=== PATIENT | female | born 1965 | race Two or more races ===

== ENCOUNTER 2018-10-24 16:32 | Emergency (ER) | payer OTHER ==
[~2018-10-24] VITALS: Ht 157.5 cm; Wt 75.3 kg
[2018-10-24 16:40] VITALS: BP 121/66
[2018-10-24] MEDS ORDERED: HYDROcodone/APAP 5/325MG 1 TAB TABLET PO ONE (17:00)
--- NOTE | 2018-10-24 17:30 | PHYS DOC ---
Past Medical History Past Medical History: CHF, GERD, Hypertension Past Surgical History: No Surgical History Alcohol Use: None Drug Use: None Adult General Chief Complaint Chief Complaint: ANKLE PROBLEM HPI HPI Patient is a 53 year old f who presents to the ED for evaluation. Reports mechanical fall last night resulting in rolling left ankle. Initially able to weight beasr a little on it but now with increased swelling and unable to weight bear. Pain is constant, 5-6/10, sharp, worse with movement/weight baring. No head injury. no other complaints. Took Ibuprofen with some mild relief. Review of Systems Review of Systems Constitutional: Denies fever or chills [] Respiratory: Denies cough or shortness of breath [] Cardiovascular: No additional information not addressed in HPI [] GI: Denies abdominal pain, nausea, vomiting, bloody stools or diarrhea [] : Denies dysuria or hematuria [] Musculoskeletal: +joint pain Integument: No rash, Neurologic: Denies headache, focal weakness or sensory changes [] Endocrine: Denies polyuria or polydipsia [] All other systems were reviewed and found to be within normal limits, except as documented in this note. Current Medications Current Medications Current Medications Medications (Trade) Dose Ordered Sig/Estuardo Start Time Stop Time Status Last Admin Dose Admin Acetaminophen/ Hydrocodone Bitart (Lortab 5/325) 1 tab 1X ONCE 10/24/18 17:00 10/24/18 17:01 DC 10/24/18 17:14 1 TAB Allergies Allergies Allergies Coded Allergies Type Severity Reaction Last Updated Verified No Known Drug Allergies 04/05/18 No Physical Exam Physical Exam Constitutional: Well developed, well nourished, HENT: Normocephalic, atraumatic, Eyes: PERRLA, EOMI, Neck: No stridor, trachea midline Cardiovascular:Normal perfusion, Bilateral DP pulses +2/4 Lungs & Thorax: No respiratory distress Abdomen: Bowel sounds normal, soft, no tenderness, no masses, no pulsatile masses. [] Skin: Warm, dry, intact, bruising as beow Back: No tenderness, no CVA tenderness. [] Extremities: Mild to moderate swelling through left ankle/foot with some mild bruising. No lateral malleoli tenderness. Moderate tenderness at base of fifth metatarsal. Mild to moderate decreased ROM of ankle/foot 2/2 pain. Distal sensation intact. Left DP pulse +2/4 Neurologic: Alert and oriented X 3, no focal deficits noted. [] Psychologic: Affect normal, judgement normal, mood normal. [] Current Patient Data Vital Signs Vital Signs Date Time Temp Pulse Resp B/P (MAP) Pulse Ox O2 Delivery O2 Flow Rate FiO2 10/24/18 17:14 16 98 Room Air 10/24/18 16:40 97.7 62 121/66 (84) 97.7 EKG EKG [] Radiology/Procedures Radiology/Procedures Ankle XR: No acute fracture Left Foot XR proximal, nondisplaced fifth metatarsal fracture [] Course & Med Decision Making Course & Med Decision Making Pertinent Labs and Imaging studies reviewed. (See chart for details) []Likely proximal fifth metatarsal fracture. Will place in post-op shoe, weight bearing as tolerated and ortho follow up. Discussed supportive care. Prescription discussed. ER return precautions given. Patient verbalized understanding. All questions answered. Patient referred to orthopedic. Rajni Disclaimer Dragon Disclaimer This electronic medical record was generated, in whole or in part, using a voice recognition dictation system. Departure Departure Impression: Primary Impression: Fracture of fifth metatarsal bone of left foot Additional Impression: Left ankle strain Disposition: HOME, SELF-CARE Condition: IMPROVED Referrals: CESAR GRIFFITHS DO (PCP) JOS BOYCE MD Patient Instructions: Metatarsal Fracture, Undisplaced Additional Instructions: Thank you for coming to [facility]. Please read the attached handouts. Please follow-up with your primary care physician. Follow-up with Referred Ortho physician. Keep the leg elevated as much as possible for the next 48 hours. Weight-bear only as tolerated otherwise use the crutches. Please take ibuprofen 600 mg every 6 hours for pain with food. Please take the prescribed medication for uncontrolled pain. Return to the ER if your symptoms worsen or you have any other concerns. Scripts Hydrocodone/Apap 5-325 (NORCO 5-325 TABLET) 1 Each Tablet 1-2 EACH PO PRN Q6HRS PRN for PAIN, #15 as needed for pain Prov: CRISTIAN JO DO 10/24/18 Problem Qualifiers CRISTIAN JO DO Oct 24, 2018 17:30
[2018-10-24] MEDS ORDERED: HYDR-3164 PO (17:39)
--- NOTE | 2018-10-25 00:09 | RAD ---
FOOT LEFT 3V, ANKLE LEFT 3V 10/24/2018 4:56 PM INDICATION: Trauma COMPARISON: None available. TECHNIQUE: 3 views of the left foot and 3 views the left ankle are provided. FINDINGS: There is no acute fracture or dislocation. Tibial plafond and talar dome are intact. The ankle mortise is congruent. Bone mineralization is within normal limits. Joint spaces are maintained. Regional soft tissues are within normal limits. There is no soft tissue gas or osseous erosion. IMPRESSION: No acute fracture or dislocation. Electronically signed by: Nanci Sanon MD (10/25/2018 12:06 AM) [id number]
== END 2018-10-24 18:01 | disposition home or self-care (01) ==
LOC: ER 16:32
DX: S92.325A Nondisplaced fracture of second metatarsal bone, left foot, initial encounter for closed fracture (principal); S93.402A Sprain of unspecified ligament of left ankle, initial encounter; I11.0 Hypertensive heart disease with heart failure; I50.9 Heart failure, unspecified; K21.9 Gastro-esophageal reflux disease without esophagitis; W18.39XA Other fall on same level, initial encounter; Y93.89 Activity, other specified; Y92.89 Other specified places as the place of occurrence of the external cause; Y99.8 Other external cause status
CPT/HCPCS: 73610; 73630; 99284

== ENCOUNTER 2018-11-06 17:50 | Inpatient (IN) | payer OTHER ==
[~2018-11-06] VITALS: Ht 154.9 cm; Wt 76.2 kg
[~2018-11-06 17:50] MED LIST: HYDR-3164 PO
[2018-11-06] MEDS ORDERED: CLINDAMYCIN 600MG PREMIX 50 ML IV ONE (18:30)
[2018-11-06] MEDS ORDERED: IV NORMAL SALINE 1000ML BAG 1,000 ML IV ONE (18:30)
[2018-11-06] MEDS ORDERED: fentaNYL PF VIAL 100 MCG/2 ML VIAL IV ONE (18:30)
--- NOTE | 2018-11-06 18:30 | PHYS DOC ---
Past Medical History Past Medical History: CHF, GERD, Hypertension Past Surgical History: No Surgical History Additional Information: Nonsmoker Alcohol Use: None Drug Use: None Adult General Chief Complaint Chief Complaint: LOWER EXTREMITY SWELLING HPI HPI 53 y/o female presents with her daughter with report of left foot pain and swelling which has been worsening over the last several weeks. Patient reports she was her at [facility] approximately "3 weeks ago" and was started on "antibiotics" which she finished a few days ago. Reports known foot fracture and has been wearing post operative shoe that was given to her from the ED upon discharge. Denies fever/chills. Patient poor historian as she only speaks Tibetan. Denies known diabetes. Denies known immune compromised state. Per [facility] review, patient was seen in ED on 10/24/18 and diagnosed with left 5th metatarsal fracture and placed in post operative shoe and possibly given crutches with prescription for [place] 5/325mg x 15 tabs. Patient was to follow with orthopedics and/or her PCP. Review of Systems Review of Systems Constitutional: Denies fever or chills Musculoskeletal: Denies back pain; reports left foot pain and swelling Integument: Reports left foot erythema and surrounding swelling. Neurologic: Denies headache, focal weakness or sensory changes Complete systems were reviewed and found to be within normal limits, except as documented in this note. Current Medications Current Medications Current Medications Medications (Trade) Dose Ordered Sig/Estuardo Start Time Stop Time Status Last Admin Dose Admin Clindamycin Phosphate 50 ml @ 100 mls/hr 1X ONCE 11/06/18 18:30 11/06/18 18:59 DC 11/06/18 18:39 100 MLS/HR Fentanyl Citrate (Fentanyl 2ml Vial) 50 mcg 1X ONCE 11/06/18 18:30 11/06/18 18:33 DC 11/06/18 18:41 50 MCG Sodium Chloride 1,000 ml @ 1,000 mls/hr 1X ONCE 11/06/18 18:30 11/06/18 19:29 DC 11/06/18 18:42 1,000 MLS/HR Allergies Allergies Allergies Coded Allergies Type Severity Reaction Last Updated Verified No Known Drug Allergies 04/05/18 No Physical Exam Physical Exam Constitutional: Well developed, well nourished, no acute distress, non-toxic a ppearance. HENT: Normocephalic, atraumatic, oral mucosa tacky Eyes: Conjunctiva normal, no discharge Neck: Normal range of motion, no tenderness, supple, no meningeal signs Cardiovascular: Heart rate regular rhythm, CR < 2 sec to distal toes Lungs & Thorax: Bilateral breath sounds clear to auscultation; no distress Skin: Warm, dry, ecchmosis to left foot with overlying erythema extending to distal 1/3 of tib/fib area Extremities: Tenderneess to left plantar foot and focally over left 5th metatarsal, ankle intact. PT and DP +2 pulses, CR < 2 sec Neurologic: Alert and oriented X 3, no focal deficits noted. Psychologic: Affect normal, judgement normal, Current Patient Data Vital Signs Vital Signs Date Time Temp Pulse Resp B/P (MAP) Pulse Ox O2 Delivery O2 Flow Rate FiO2 11/06/18 18:41 17 96 Room Air 11/06/18 18:21 98.1 72 179/84 (115) 98.1 Lab Values Laboratory Tests Test 11/06/18 18:16 White Blood Count 8.6 x10^3/uL (4.0-11.0) Red Blood Count 5.03 x10^6/uL (3.50-5.40) Hemoglobin 16.1 g/dL (12.0-15.5) H Hematocrit 47.7 % (36.0-47.0) H Mean Corpuscular Volume 95 fL (79-100) Mean Corpuscular Hemoglobin 32 pg (25-35) Mean Corpuscular Hemoglobin Concent 34 g/dL (31-37) Red Cell Distribution Width 12.5 % (11.5-14.5) Platelet Count 258 x10^3/uL (140-400) Neutrophils (%) (Auto) 58 % (31-73) Lymphocytes (%) (Auto) 29 % (24-48) Monocytes (%) (Auto) 7 % (0-9) Eosinophils (%) (Auto) 5 % (0-3) H Basophils (%) (Auto) 1 % (0-3) Neutrophils # (Auto) 5.0 x10^3/uL (1.8-7.7) Lymphocytes # (Auto) 2.5 x10^3/uL (1.0-4.8) Monocytes # (Auto) 0.6 x10^3/uL (0.0-1.1) Eosinophils # (Auto) 0.5 x10^3/uL (0.0-0.7) Basophils # (Auto) 0.1 x10^3/uL (0.0-0.2) Erythrocyte Sedimentation Rate 19 (0-25) Prothrombin Time 12.1 SEC (11.7-14.0) Prothrombin Time INR 0.9 (0.8-1.1) PTT 24 SEC (24-38) Sodium Level 139 mmol/L (136-145) Potassium Level 4.0 mmol/L (3.5-5.1) Chloride Level 103 mmol/L (98-107) Carbon Dioxide Level 27 mmol/L (21-32) Anion Gap 9 (6-14) Blood Urea Nitrogen 10 mg/dL (7-20) Creatinine 0.8 mg/dL (0.6-1.0) Estimated GFR (Cockcroft-Gault) 75.0 BUN/Creatinine Ratio 13 (6-20) Glucose Level 74 mg/dL (70-99) Calcium Level 9.3 mg/dL (8.5-10.1) Magnesium Level 2.2 mg/dL (1.8-2.4) Total Bilirubin 0.4 mg/dL (0.2-1.0) Aspartate Amino Transferase (AST) 33 U/L (15-37) Alanine Aminotransferase (ALT) 29 U/L (14-59) Alkaline Phosphatase 141 U/L (46-116) H C-Reactive Protein, Quantitative 4.9 mg/L (0-3.3) H Total Protein 9.4 g/dL (6.4-8.2) H Albumin 4.0 g/dL (3.4-5.0) Albumin/Globulin Ratio 0.7 (1.0-1.7) L Laboratory Tests 11/06/18 18:16 Laboratory Tests 11/06/18 18:16 EKG EKG [] Radiology/Procedures Radiology/Procedures [] Course & Med Decision Making Course & Med Decision Making Pertinent Lab studies reviewed. (See chart for details) Patient presents with report of foot fracture to left 5th metatarsal which occurred on 10/24/18 per [facility] review. Patient speaks only Tibetan and reports she finished "antibiotics" 5 days ago and is now with increased redness and swelling. Daughter who presents with patient also unclear regarding antibiotic therapy. Daughter does speak Brazilian. Daughter with continued report of antibiotics. [facility] review noted patient discharged in post operative shoe and given Rx for pain medication. Patient does have some ecchymosis but appears to have overlying cellulitis with extension from foot to distal 1/3 of lower extremity (pretibial area). Patient started on empiric antibiotics. Pain addressed. Labs obtained and posted to chart. WBC WNL. H/H elevated likely due to concentration (dehydration). IVF hydration given. ESR WNL. CRP elevated. Cannot fully exclude failed antibiotic therapy due to patient's language barrier. Decision to admit to monitor more closely. Likely cellulitis occurred to patient wearing post operative shoe in heat barefooted. Patient requiring admission for further evaluation and treatment. Discussed with Dr. Rivas (hospitalist) who is in agreement with admit. Discussed findings and plan with patient and family, who acknowledge understanding and agreement. Dragon Disclaimer Dragon Disclaimer This electronic medical record was generated, in whole or in part, using a voice recognition dictation system. Departure Departure Impression: Primary Impression: Cellulitis of left foot Additional Impressions: Dehydration Elevated C-reactive protein (CRP) Fx metatarsal-closed Disposition: ADMITTED INPATIENT Admitting Physician: [facility] (Dr. Rivas) Condition: STABLE Referrals: CESAR GRIFFITHS DO (PCP) Scripts Cephalexin (KEFLEX) 500 Mg Capsule 1 CAP PO TID for cellulitis for 6 Days, #18 CAP Prov: YARIEL PULIDO MD 11/10/18 Problem Qualifiers Additional Impressions: Fx metatarsal-closed Encounter type: subsequent encounter Metatarsal bone: fifth Fracture alignment: nondisplaced Laterality: left BRINDA HARTMANN DO Nov 06, 2018 18:30
[2018-11-06 18:35] LABS: BASO # 0.1 x10^3/uL (0.0-0.2); BASO % 1 % (0-3); EOS # 0.5 x10^3/uL (0.0-0.7); EOS % 5 % (0-3); HEMATOCRIT 47.7 % (36.0-47.0); HEMOGLOBIN 16.1 g/dL (12.0-15.5); LYMPH # 2.5 x10^3/uL (1.0-4.8); LYMPH % 29 % (24-48); MEAN CORPUSCULAR HEMOGLOBIN 32 pg (25-35); MEAN CORPUSCULAR HGB CONC 34 g/dL (31-37); MEAN CORPUSCULAR VOLUME 95 fL (79-100); MONO # 0.6 x10^3/uL (0.0-1.1); MONO % 7 % (0-9); NEUT % 58 % (31-73); PLATELET COUNT 258 x10^3/uL (140-400); RED BLOOD COUNT 5.03 x10^6/uL (3.50-5.40); RED CELL DISTRIBUTION WIDTH 12.5 % (11.5-14.5); WHITE BLOOD COUNT 8.6 x10^3/uL (4.0-11.0)
[2018-11-06 18:44] LABS: PROTHROMBIN TIME PATIENT 12.1 SEC (11.7-14.0)
[2018-11-06 18:47] LABS: CALCIUM 9.3 mg/dL (8.5-10.1); CREATININE 0.8 mg/dL (0.6-1.0)
[2018-11-06 18:52] LABS: ALBUMIN/GLOBULIN RATIO 0.7 (1.0-1.7); C-REACTIVE PROTEIN 4.9 mg/L (0-3.3); MAGNESIUM 2.2 mg/dL (1.8-2.4); TOTAL BILIRUBIN 0.4 mg/dL (0.2-1.0); TOTAL PROTEIN 9.4 g/dL (6.4-8.2)
[2018-11-06 19:15] VITALS: BP 124/78
[2018-11-06] MEDS ORDERED: OMEP20CA10 PO (20:09)
[2018-11-06] MEDS ORDERED: ACETAMINOPHEN 500 MG TABLET PO PRN (20:30)
[2018-11-06] MEDS ORDERED: VANCOMYCIN 1.25 GM in IV NORMAL SALINE 250ML 250 ML IV SCH (20:30)
[2018-11-06] MEDS: KETOROLAC 30 MG/ML VIAL. IV PRN (20:47)
[2018-11-06] MEDS ORDERED: VANCOMYCIN 2 GM in IV NORMAL SALINE 500ML BAG 500 ML IV ONE (21:00)
[2018-11-06 22:34] VITALS: BP 125/64
[2018-11-06] MEDS: ENOXAPARIN 40 MG/0.4 ML SYRINGE. SQ SCH (22:38)
[2018-11-07] MEDS: HYDROcodone/APAP 5/325MG 1 TAB TABLET PO PRN ×3 (00:16→20:21)
[2018-11-07 02:39] VITALS: BP 104/52
[2018-11-07] MEDS: VANCOMYCIN PER PHARMACY MC PRN ×2 (03:06→17:26)
--- NOTE | 2018-11-07 03:07 | NUR ---
Pharmacy Vancomycin Dosing Note S:Consulted to monitor and dose vancomycin started 11/06/18. O:MARY CATES is a 53 year old F with Cellulitis . Height: 5 feet, 1 inches Weight: 76.375326 kg [place] Body Weight: 47.80 Adjusted Body Weight: 59.08 Dosing Weight: Actual Other Antibiotics: LABS: Last BUN: 10 Last Creatinine: 0.8 Creatinine Clearance: 76 mL/min Last WBC: 8.6 Last Procalcitonin: Tmax (past 24 hours): Microbiology: I/O: Drug Levels: Last level: on at Last dose given at Vancomycin Dosing: Loading Dose: 2000 mg x1 11/06/187 Dosing Weight: Actual Target Trough: 10-20 A: Based on: Actual Wt and CrCl P: 1. 11/07/18 1030 Vancomycin 1250 mg IV q12h 2. Follow up Trough level on 11/08/18 at 1000 3. Pharmacy will continue to monitor, follow and adjust therapy as needed. MARTHA FU RPH, 11/07/18 0308 Signed: 11/07/18 at 0309 by MARTHA FU RPH PHA
[2018-11-07] MEDS: KETOROLAC 30 MG/ML VIAL. IV PRN (05:43)
[2018-11-07 07:00] VITALS: BP 115/64
[2018-11-07] MEDS: PANTOPRAZOLE 40 MG TABLET.DR. PO SCH (08:40)
[2018-11-07 11:00] VITALS: BP 144/78
--- NOTE | 2018-11-07 11:05 | PDOC1 ---
History and Physical Date of Admission: Date of Admission DATE: 11/07/18 TIME: 11:00 Chief Complaint: Problems: (1) Thumb injury (2) Cellulitis of left foot Chief Complain: Right foot pain erythema History of Present Illness: HPI: This is a relatively healthy young female who had right foot pain Is swollen its erythematous and appears to be cellulitis She was given a dose of IV antibiotics and admitted overnight This morning I saw her and examined her I'm the consult infectious disease and get a second opinion Past Medical/Surgical History: PMH/PSH: CHF, GERD, Hypertension Allergies: Allergies: Coded Allergies: No Known Drug Allergies (Unverified , 04/05/18) Family History: Family History: Hypertension Social History: Social Hisoty: She does not drink smoke or take drugs Current Medications: Current Medications Current Medications Sodium Chloride 1,000 ml @ 1,000 mls/hr 1X ONCE IV Last administered on 11/06/18at 18:42; Start 11/06/18 at 18:30; Stop 11/06/18 at 19:29; Status DC Clindamycin Phosphate 50 ml @ 100 mls/hr 1X ONCE IV Last administered on 11/06/18at 18:39; Start 11/06/18 at 18:30; Stop 11/06/18 at 18:59; Status DC Fentanyl Citrate (Fentanyl 2ml Vial) 50 mcg 1X ONCE IV Last administered on 11/06/18at 18:41; Start 11/06/18 at 18:30; Stop 11/06/18 at 18:33; Status DC Acetaminophen/ Hydrocodone Bitart (Lortab 5/325) 1 tab PRN Q6HRS PRN PO MODERATE PAIN Last administered on 11/07/18at 00:16; Start 11/06/18 at 20:30 Pantoprazole Sodium (Protonix) 40 mg DAILYAC PO Last administered on 11/07/18at 08:40; Start 11/07/18 at 07:30 Acetaminophen (Tylenol) 500 mg PRN Q6HRS PRN PO MILD PAIN / TEMP; Start 11/06/18 at 20:30 Ketorolac Tromethamine (Toradol 30mg Vial) 30 mg PRN Q6HRS PRN IV MODERATE PAIN Last administered on 11/07/18at 05:43; Start 11/06/18 at 20:30; Stop 11/11/18 at 20:29 Vancomycin HCl 1.25 gm/Sodium Chloride 250 ml @ 167 mls/hr Q12H IV ; Start 11/06/18 at 20:30; Status UNV Vancomycin HCl (Vanco Per Pharmacy) 1 each PRN DAILY PRN MC SEE COMMENTS Last administered on 11/07/18at 03:06; Start 11/06/18 at 20:30 Vancomycin HCl 2 gm/Sodium Chloride 500 ml @ 250 mls/hr 1X ONCE IV Last administered on 11/06/18at 22:37; Start 11/06/18 at 21:00; Stop 11/06/18 at 22:59; Status DC Enoxaparin Sodium (Lovenox 40mg Syringe) 40 mg Q24H SQ Last administered on 11/06/18at 22:38; Start 11/06/18 at 21:30 Vancomycin HCl 1.25 gm/Sodium Chloride 250 ml @ 167 mls/hr Q12H IV ; Start 11/07/18 at 10:30 Vancomycin HCl (Vancomycin Trough Level) 1 each 1X ONCE MC ; Start 11/08/18 at 10:00; Stop 11/08/18 at 10:01 Active Scripts Active [place] 5-325 Tablet (Acetaminophen/Hydrocodone Bitart) 1 Each Tablet 1-2 Each PO PRN Q6HRS PRN as needed for pain Reported Omeprazole 20 Mg Capsule. 20 Mg PO DAILYAC ROS: Review of Systems Review of System REVIEW OF SYSTEMS: GENERAL: Denies weakness SKIN: No bruising, hair changes or rashes. EYES: No blurred, double or loss of vision. NOSE AND THROAT: No history of nosebleeds, hoarseness or sore throat. HEART: No history of palpitations, chest pain or shortness of breath on exertion. LUNGS: Denies cough, hemoptysis, wheezing or shortness of breath. GASTROINTESTINAL: Denies changes in appetite, nausea, vomiting, diarrhea or constipation. GENITOURINARY: No history of frequency, urgency, hesitancy or nocturia. NEUROLOGIC: Denies history of numbness, tingling, tremor or weakness. PSYCHIATRIC: No history of panic, anxiety or depression. ENDOCRINE: No history of heat or cold intolerance, polyuria or polydipsia. EXTREMITIES: She complains of pain on the right foot Physical Exam: Vital Signs: Vital Signs Date Time Temp Pulse Resp B/P (MAP) Pulse Ox O2 Delivery O2 Flow Rate FiO2 11/07/18 07:00 98.0 66 16 115/64 (81) 100 Room Air 98.0 Physcial Exam: GEN.: No apparent distress. Alert and oriented. HEENT: Head is normocephalic, atraumatic NECK: Supple, no JVD LUNGS: Clear to auscultation without rhonchi or wheezing HEART: RRR, S1, S2 present. Peripheral pulses intact ABDOMEN: Soft, nontender. Positive bowel sounds no organomegaly EXTREMITIES: Right foot with painful erythema and swelling and cellulitis NEUROLOGIC: Normal speech, normal tone. A&O x 3 PSYCHIATRIC: Normal affect, normal mood. Stable SKIN: No ulcerations or rashes VASCULAR: Good capillary refill Labs: Labs: Laboratory Tests Test 11/06/18 18:16 White Blood Count 8.6 x10^3/uL (4.0-11.0) Red Blood Count 5.03 x10^6/uL (3.50-5.40) Hemoglobin 16.1 g/dL (12.0-15.5) Hematocrit 47.7 % (36.0-47.0) Mean Corpuscular Volume 95 fL (79-100) Mean Corpuscular Hemoglobin 32 pg (25-35) Mean Corpuscular Hemoglobin Concent 34 g/dL (31-37) Red Cell Distribution Width 12.5 % (11.5-14.5) Platelet Count 258 x10^3/uL (140-400) Neutrophils (%) (Auto) 58 % (31-73) Lymphocytes (%) (Auto) 29 % (24-48) Monocytes (%) (Auto) 7 % (0-9) Eosinophils (%) (Auto) 5 % (0-3) Basophils (%) (Auto) 1 % (0-3) Neutrophils # (Auto) 5.0 x10^3/uL (1.8-7.7) Lymphocytes # (Auto) 2.5 x10^3/uL (1.0-4.8) Monocytes # (Auto) 0.6 x10^3/uL (0.0-1.1) Eosinophils # (Auto) 0.5 x10^3/uL (0.0-0.7) Basophils # (Auto) 0.1 x10^3/uL (0.0-0.2) Erythrocyte Sedimentation Rate 19 (0-25) Prothrombin Time 12.1 SEC (11.7-14.0) Prothromb Time International Ratio 0.9 (0.8-1.1) Activated Partial Thromboplast Time 24 SEC (24-38) Sodium Level 139 mmol/L (136-145) Potassium Level 4.0 mmol/L (3.5-5.1) Chloride Level 103 mmol/L (98-107) Carbon Dioxide Level 27 mmol/L (21-32) Anion Gap 9 (6-14) Blood Urea Nitrogen 10 mg/dL (7-20) Creatinine 0.8 mg/dL (0.6-1.0) Estimated GFR (Cockcroft-Gault) 75.0 BUN/Creatinine Ratio 13 (6-20) Glucose Level 74 mg/dL (70-99) Calcium Level 9.3 mg/dL (8.5-10.1) Magnesium Level 2.2 mg/dL (1.8-2.4) Total Bilirubin 0.4 mg/dL (0.2-1.0) Aspartate Amino Transf (AST/SGOT) 33 U/L (15-37) Alanine Aminotransferase (ALT/SGPT) 29 U/L (14-59) Alkaline Phosphatase 141 U/L (46-116) C-Reactive Protein, Quantitative 4.9 mg/L (0-3.3) Total Protein 9.4 g/dL (6.4-8.2) Albumin 4.0 g/dL (3.4-5.0) Albumin/Globulin Ratio 0.7 (1.0-1.7) Laboratory Tests Test 11/06/18 18:16 White Blood Count 8.6 x10^3/uL (4.0-11.0) Red Blood Count 5.03 x10^6/uL (3.50-5.40) Hemoglobin 16.1 g/dL (12.0-15.5) Hematocrit 47.7 % (36.0-47.0) Mean Corpuscular Volume 95 fL (79-100) Mean Corpuscular Hemoglobin 32 pg (25-35) Mean Corpuscular Hemoglobin Concent 34 g/dL (31-37) Red Cell Distribution Width 12.5 % (11.5-14.5) Platelet Count 258 x10^3/uL (140-400) Neutrophils (%) (Auto) 58 % (31-73) Lymphocytes (%) (Auto) 29 % (24-48) Monocytes (%) (Auto) 7 % (0-9) Eosinophils (%) (Auto) 5 % (0-3) Basophils (%) (Auto) 1 % (0-3) Neutrophils # (Auto) 5.0 x10^3/uL (1.8-7.7) Lymphocytes # (Auto) 2.5 x10^3/uL (1.0-4.8) Monocytes # (Auto) 0.6 x10^3/uL (0.0-1.1) Eosinophils # (Auto) 0.5 x10^3/uL (0.0-0.7) Basophils # (Auto) 0.1 x10^3/uL (0.0-0.2) Erythrocyte Sedimentation Rate 19 (0-25) Prothrombin Time 12.1 SEC (11.7-14.0) Prothromb Time International Ratio 0.9 (0.8-1.1) Activated Partial Thromboplast Time 24 SEC (24-38) Sodium Level 139 mmol/L (136-145) Potassium Level 4.0 mmol/L (3.5-5.1) Chloride Level 103 mmol/L (98-107) Carbon Dioxide Level 27 mmol/L (21-32) Anion Gap 9 (6-14) Blood Urea Nitrogen 10 mg/dL (7-20) Creatinine 0.8 mg/dL (0.6-1.0) Estimated GFR (Cockcroft-Gault) 75.0 BUN/Creatinine Ratio 13 (6-20) Glucose Level 74 mg/dL (70-99) Calcium Level 9.3 mg/dL (8.5-10.1) Magnesium Level 2.2 mg/dL (1.8-2.4) Total Bilirubin 0.4 mg/dL (0.2-1.0) Aspartate Amino Transf (AST/SGOT) 33 U/L (15-37) Alanine Aminotransferase (ALT/SGPT) 29 U/L (14-59) Alkaline Phosphatase 141 U/L (46-116) C-Reactive Protein, Quantitative 4.9 mg/L (0-3.3) Total Protein 9.4 g/dL (6.4-8.2) Albumin 4.0 g/dL (3.4-5.0) Albumin/Globulin Ratio 0.7 (1.0-1.7) Images: Images Pending Assessment/Plan Assessment/Plan Right foot cellulitis Plan She received a dose of IV Avelox in the ER The consult infectious disease. Home meds IV fluids When necessary narcotics DVT prophylaxis Full code SONG COLLAZO III DO Nov 07, 2018 11:05
[2018-11-07] MEDS: VANCOMYCIN 1.25 GM in IV NORMAL SALINE 250ML 250 ML IV SCH ×2 (11:48→22:42)
[2018-11-07 15:00] VITALS: BP 147/66
--- NOTE | 2018-11-07 16:45 | RAD ---
2 view left foot HISTORY: Osteomyelitis COMPARISON: October 24, 2018 FINDINGS: AP and lateral views of the left foot are presented. No acute fracture or dislocation is seen. Joint spaces appear maintained. Mild soft tissue irregularity between the first and second digits may represent a soft tissue injury. IMPRESSION: No acute fracture or dislocation No radiographic suggestion of osteomyelitis Electronically signed by: Vijay Rincon MD (11/07/2018 4:41 PM) [facility]
[2018-11-07 19:00] VITALS: BP 121/77
[2018-11-07] MEDS: LACTOBACILLUS RHAMNOSUS GG 1 CAPSULE. PO SCH (20:20)
[2018-11-07] MEDS: ENOXAPARIN 40 MG/0.4 ML SYRINGE. SQ SCH (20:21)
[2018-11-07 22:47] VITALS: BP 128/73
[2018-11-08 03:00] VITALS: BP 109/58
[2018-11-08] MEDS: PANTOPRAZOLE 40 MG TABLET.DR. PO SCH (07:46)
[2018-11-08 07:59] VITALS: BP 123/67
[2018-11-08] MEDS: LACTOBACILLUS RHAMNOSUS GG 1 CAPSULE. PO SCH ×2 (09:00→20:54)
--- NOTE | 2018-11-08 10:41 | NUR ---
Holding Vancomycin IV pending trough level, in process.
[2018-11-08 10:59] LABS: VANC TR 18.1 mcg/mL (10.0-20.0)
--- NOTE | 2018-11-08 11:05 | NUR ---
Vanco Trough 18.1 reported to [facility] [place] to give current dose. See labs and emar.
[2018-11-08] MEDS: VANCOMYCIN PER PHARMACY MC PRN (11:11)
--- NOTE | 2018-11-08 11:12 | NUR ---
Pharmacy Vancomycin Dosing Note S:Consulted to monitor and dose vancomycin started 11/06/18. O:MARY CATES is a 53 year old F with Cellulitis . Height: 5 feet, 1 inches Weight: 76.499395 kg [place] Body Weight: 47.80 Adjusted Body Weight: 59.08 Dosing Weight: Actual Other Antibiotics: N/A LABS: Last BUN: 10 Last Creatinine: 0.8 Creatinine Clearance: 76 mL/min Last WBC: 8.6 Last Procalcitonin: Tmax (past 24 hours): 98.6 Microbiology: BLOOD CX IN PROCESS I/O: 300/5 voids Drug Levels: Last Trough level: 18.1 on 11/08/18 at 1000 Last dose given 11/07/18 at 1148 Vancomycin Dosing: Loading Dose: 2000 mg x1 Dosing Weight: Actual Target Trough: 10-20 A: Based on: LEVEL P: 1. Continue Vancomycin 1250 mg IV q12h 2. Follow up Trough level NEEDED 3. Pharmacy will continue to monitor, follow and adjust therapy as needed. KUSHAL SHEARER [facility], 11/08/18 [id number]
[2018-11-08] MEDS: VANCOMYCIN 1.25 GM in IV NORMAL SALINE 250ML 250 ML IV SCH (11:17)
[2018-11-08 11:59] VITALS: BP 122/65
--- NOTE | 2018-11-08 12:05 | PDOC ---
[facility] PROGRESS NOTE Chief Complaint Chief Complaint Left foot cellulitis History of Present Illness History of Present Illness Patient was seen and examined She was resting comfortably in bed She says that her left foot and ankle are less tender today and does not feel as warm Improvement noted on examination Vitals/I&O Vitals/I&O: Vital Signs Date Time Temp Pulse Resp B/P (MAP) Pulse Ox O2 Delivery O2 Flow Rate FiO2 11/08/18 08:00 Room Air 11/08/18 07:59 97.6 62 17 123/67 (85) 93 97.6 I & O 11/07/18 11/07/18 11/08/18 15:00 23:00 07:00 Intake Total 120 ml 360 ml 250 ml Balance 120 ml 360 ml 250 ml Physical Exam General: Alert, Cooperative, No acute distress Heart: Regular rate, Normal S1, Normal S2 Lungs: Clear, Other (chest expansion symmetrical on respiration) Abdomen: Normal bowel sounds, Soft, No tenderness Extremities: No cyanosis, Other (erythema and warmth of left ankle and foot) Labs Labs: Laboratory Tests Test 11/08/18 09:50 Vancomycin Level Trough 18.1 mcg/mL (10.0-20.0) Vancomycin Last Dose Date 11/07/18 Vancomycin Last Dose Time 2229 Review of Systems Review of Systems: General: No fever, no chills Skin: No rashes, erythema of left lower extremity at the foot and ankle Assessment and Plan Assessmemt and Plan Problems Medical Problems: (1) Cellulitis of left foot Status: Acute Assessment: Left foot cellulitis Plan: Continue IV vancomycin Consulted ID - awaiting their input Toradol PRN for pain q6 Continue home meds IV fluids PT/OT DVT prophylaxis - lovenox Full code Comment Review of Relevant I have reviewed the following items krystal (where applicable) has been applied. Medications: Current Medications Medications (Trade) Dose Ordered Sig/Estuardo Route PRN Reason Start Time Stop Time Status Last Admin Dose Admin Lactobacillus Rhamnosus (Culturelle) 1 cap BID PO 11/07/18 21:00 11/08/18 09:00 SONG COLLAZO III DO Nov 08, 2018 12:05
--- NOTE | 2018-11-08 14:29 | PDOC ---
Infectious Disease Note Vital Sign Vital Signs Vital Signs Date Time Temp Pulse Resp B/P (MAP) Pulse Ox O2 Delivery O2 Flow Rate FiO2 11/08/18 11:59 97.7 54 18 122/65 (84) 97 Room Air 97.7 Labs Lab Laboratory Tests Test 11/08/18 09:50 Vancomycin Level Trough 18.1 mcg/mL (10.0-20.0) Vancomycin Last Dose Date 11/07/18 Vancomycin Last Dose Time 2230 Micro Microbiology 11/06/18 Blood Culture - Preliminary, Resulted NO GROWTH AFTER 1 DAY Objective Assessment Cellulitis left foot - improved per patient/daughter Left ankle sprain. x-ray neg fracture/dislocation Hypertension CHF GERD Plan Plan of Care Improving on vanc Trough 18.1 Monitor renal function closely Probiotics D/w daughter at bedside The phone for spanish interpreter/translator services not working Thank you [phone] On my exam the left foot has no warmth and is mildly discolored. there is trace to 1 plus edema and she is tender over the dorsal lateral aspect close to the lateral malleolus D/c Vanc and change to Keflex for 6 more days. ? Ligament injury from rolling - has Ortho appointment on Sat. AMY Wrap Ok to d/c from ID standpoint D/w daughter Attending Co-Sign Attending Co-Sign The patient was seen and interviewed as well as examined at the bedside. The chart was reviewed. The case was discussed. Agree with the plan of care. MORRIS CANO APRN Nov 08, 2018 14:29 OSMAN ANDRADE MD Nov 08, 2018 15:16
--- NOTE | 2018-11-08 15:26 | CONS ---
DATE OF CONSULTATION: 11/08/2018 REQUESTING PHYSICIAN: Dr. Rivas. REASON FOR CONSULTATION: Foot cellulitis. HISTORY OF PRESENT ILLNESS: The patient is a 53-year-old Armenian speaking woman who about 2 weeks ago, developed pain and swelling of her left foot after she tripped outside. She was seen in the ER on 10/24. Imaging did not reveal any fracture or dislocation. She was released on pain medications and instructions for weightbearing as tolerated and to follow up with ortho. The patient says her pain was initially getting better, but she continued to have some difficulty walking and bearing full weight. The swelling persisted and about a week ago, she noticed her foot was red and traveling up her leg. She denies fevers, chills or body aches. Her foot was x-rayed again and showed mild soft tissue irregularity between the first and second digits. No acute fracture or dislocation seen. She was dosed with vancomycin. Since admission, the patient and her daughter said the redness has improved. She complains of pain along the lateral aspect of her ankle. The swelling is about the same. PAST MEDICAL HISTORY: Congestive heart failure, hypertension, GERD. FAMILY HISTORY: Hypertension.. SOCIAL HISTORY: The patient immigrated to the [facility] about 9 years ago. She is . She is a nonsmoker. ALLERGIES: No known drug allergies. MEDICATIONS: Vancomycin, Lovenox, Lortab, Toradol, probiotics, Protonix, Tylenol 500. REVIEW OF SYSTEMS: Per HPI, otherwise all other review of systems are negative. PHYSICAL EXAMINATION: VITAL SIGNS: Temperature 97.7, blood pressure 122/65, heart rate 54, respiratory rate 18, pulse oximetry 97% on room air. BMI 31. GENERAL: The patient is propped up in bed, alert and eating. HEENT: Pupils equally round, reactive. Oral cavity clear. NECK: Supple. LUNGS: Clear to auscultation. HEART: S1 and S2. ABDOMEN: Obese, soft, nontender. Bowel sounds present. EXTREMITIES: Unremarkable except left foot is bruised and slightly swollen. Minimal redness. Dorsalis pedis pulse is palpable. SKIN: Warm without rash. NEUROLOGIC: Alert, non-Yakut speaking. LABORATORY DATA: On admission; WBC 8.6, hemoglobin 6.1, platelets 258,000. Sed rate 19, creatinine 0.8, BUN 10. Electrolytes are unremarkable. Total bilirubin 0.4, AST 33, ALT 29. CRP 4.9. Vancomycin trough 18.1. Blood cultures from 11/06/2018 negative to date. IMAGING: Per history of physical illness. ASSESSMENT: 1. Cellulitis, left foot, improving. 2. Left ankle sprain. Imaging showed no evidence of fracture or dislocation. 3. Hypertension. 4. Congestive heart failure. 5. GERD. PLAN: The patient and her daughter feel that her foot is looking better, but still painful. Continue the antibiotics but switch to Keflex for 6 more days. She has an appointment with ortho on Saturday. Bucky wrap for support. Thank you, Dr. Rivas, for asking us to participate in this patient's care. Should you have further questions or concerns, please call. OSMAN ANDRADE MD DR: IRA/domenico JOB#: [id number] / [id number] HARJINDER
[2018-11-08 15:59] VITALS: BP 139/73
--- NOTE | 2018-11-08 16:11 | NUR ---
Dr. Rivas notified Dr. Lora ordered oral antibiotic and bucky wrap to left foot and stated as far as he is concerned patient can be discharged. Dr. Rivas wants patient to stay tonight and check patient's foot tomorrow. Patient and daughter notified of POC. They verb. understanding. Bucky wrap applied and patient's daughter instructed to tell her to notify RN immediately if increased pain or discomfort or if too tight. She verb. understanding.
[2018-11-08] MEDS: CEPHALEXIN 250 MG CAPSULE. PO SCH ×2 (16:56→20:54)
[2018-11-08 19:00] VITALS: BP 121/68
[2018-11-08] MEDS: ENOXAPARIN 40 MG/0.4 ML SYRINGE. SQ SCH (20:55)
[2018-11-08 23:01] VITALS: BP 149/89
[2018-11-09 03:01] VITALS: BP 122/66
[2018-11-09 04:24] LABS: BASO % 1 % (0-3); EOS # 0.5 x10^3/uL (0.0-0.7); EOS % 8 % (0-3); HEMATOCRIT 40.3 % (36.0-47.0); HEMOGLOBIN 13.5 g/dL (12.0-15.5); LYMPH # 2.4 x10^3/uL (1.0-4.8); LYMPH % 36 % (24-48); MEAN CORPUSCULAR HEMOGLOBIN 32 pg (25-35); MEAN CORPUSCULAR HGB CONC 33 g/dL (31-37); MEAN CORPUSCULAR VOLUME 95 fL (79-100); MONO # 0.5 x10^3/uL (0.0-1.1); MONO % 8 % (0-9); NEUT # 3.2 x10^3/uL (1.8-7.7); NEUT % 48 % (31-73); PLATELET COUNT 218 x10^3/uL (140-400); RED BLOOD COUNT 4.26 x10^6/uL (3.50-5.40); RED CELL DISTRIBUTION WIDTH 12.3 % (11.5-14.5); WHITE BLOOD COUNT 6.6 x10^3/uL (4.0-11.0)
[2018-11-09 04:43] LABS: CREATININE 0.8 mg/dL (0.6-1.0)
[2018-11-09 04:46] LABS: ALBUMIN/GLOBULIN RATIO 0.8 (1.0-1.7); CALCIUM 8.6 mg/dL (8.5-10.1); CREATININE 0.8 mg/dL (0.6-1.0); TOTAL BILIRUBIN 0.3 mg/dL (0.2-1.0); TOTAL PROTEIN 6.6 g/dL (6.4-8.2)
[2018-11-09 07:59] VITALS: BP 120/64
[2018-11-09] MEDS: LACTOBACILLUS RHAMNOSUS GG 1 CAPSULE. PO SCH ×2 (08:35→22:13)
[2018-11-09] MEDS: PANTOPRAZOLE 40 MG TABLET.DR. PO SCH (08:35)
[2018-11-09] MEDS: CEPHALEXIN 250 MG CAPSULE. PO SCH ×4 (08:35→22:13)
[2018-11-09 11:59] VITALS: BP 128/62
[2018-11-09] MEDS: HYDROcodone/APAP 5/325MG 1 TAB TABLET PO PRN (12:04)
--- NOTE | 2018-11-09 13:20 | PDOC ---
[facility] PROGRESS NOTE Chief Complaint Chief Complaint Left foot cellulitis History of Present Illness History of Present Illness 11-09-18 Patient was seen and examined Her left foot and ankle are wrapped, pain continues to improve She is in no acute distress Patient was seen and examined She was resting comfortably in bed She says that her left foot and ankle are less tender today and does not feel as warm Improvement noted on examination Vitals/I&O Vitals/I&O: Vital Signs Date Time Temp Pulse Resp B/P (MAP) Pulse Ox O2 Delivery O2 Flow Rate FiO2 11/09/18 12:04 Room Air 11/09/18 11:59 97.8 54 18 128/62 (84) 97 97.8 I & O 11/08/18 11/08/18 11/09/18 15:00 23:00 07:00 Intake Total 490 ml Balance 490 ml Physical Exam General: Alert, Cooperative, No acute distress Heart: Regular rate, Normal S1, Normal S2 Lungs: Clear, Other (chest expansion symmetrical on respiration) Abdomen: Normal bowel sounds, Soft, No tenderness Extremities: No cyanosis, Other (Left ankle and foot erythema, currently wrapped) Labs Labs: Laboratory Tests Test 11/09/18 03:45 White Blood Count 6.6 x10^3/uL (4.0-11.0) Red Blood Count 4.26 x10^6/uL (3.50-5.40) Hemoglobin 13.5 g/dL (12.0-15.5) Hematocrit 40.3 % (36.0-47.0) Mean Corpuscular Volume 95 fL (79-100) Mean Corpuscular Hemoglobin 32 pg (25-35) Mean Corpuscular Hemoglobin Concent 33 g/dL (31-37) Red Cell Distribution Width 12.3 % (11.5-14.5) Platelet Count 218 x10^3/uL (140-400) Neutrophils (%) (Auto) 48 % (31-73) Lymphocytes (%) (Auto) 36 % (24-48) Monocytes (%) (Auto) 8 % (0-9) Eosinophils (%) (Auto) 8 % (0-3) Basophils (%) (Auto) 1 % (0-3) Neutrophils # (Auto) 3.2 x10^3/uL (1.8-7.7) Lymphocytes # (Auto) 2.4 x10^3/uL (1.0-4.8) Monocytes # (Auto) 0.5 x10^3/uL (0.0-1.1) Eosinophils # (Auto) 0.5 x10^3/uL (0.0-0.7) Basophils # (Auto) 0.0 x10^3/uL (0.0-0.2) Sodium Level 145 mmol/L (136-145) Potassium Level 4.0 mmol/L (3.5-5.1) Chloride Level 109 mmol/L (98-107) Carbon Dioxide Level 28 mmol/L (21-32) Anion Gap 8 (6-14) Blood Urea Nitrogen 11 mg/dL (7-20) Creatinine 0.8 mg/dL (0.6-1.0) Estimated GFR (Cockcroft-Gault) 75.0 BUN/Creatinine Ratio 14 (6-20) Glucose Level 134 mg/dL (70-99) Calcium Level 8.6 mg/dL (8.5-10.1) Total Bilirubin 0.3 mg/dL (0.2-1.0) Aspartate Amino Transf (AST/SGOT) 23 U/L (15-37) Alanine Aminotransferase (ALT/SGPT) 22 U/L (14-59) Alkaline Phosphatase 110 U/L (46-116) Total Protein 6.6 g/dL (6.4-8.2) Albumin 3.0 g/dL (3.4-5.0) Albumin/Globulin Ratio 0.8 (1.0-1.7) Review of Systems Review of Systems: General: No fever, no chills Skin: No rashes or sores, erythema at left foot and ankle Assessment and Plan Assessmemt and Plan Problems Medical Problems: (1) Cellulitis of left foot Status: Acute Assessment: Left foot cellulitis Plan: Consulted ID - Bucky wrap on left foot and ankle, discontinue vanco, start PO keflex, ok for D/C Blood cultures 05/02 positive - likely contaminant, patient afebrile, WBC 6.6 on 11/09, non-toxic appearing Continue home meds IV fluids PT/OT DVT prophylaxis - lovenox Full code ID ok for discharge, possible discharge home today or tomorrow AM Comment Review of Relevant I have reviewed the following items krystal (where applicable) has been applied. Medications: Current Medications Medications (Trade) Dose Ordered Sig/Estuardo Route PRN Reason Start Time Stop Time Status Last Admin Dose Admin Cephalexin HCl (Keflex) 500 mg QID PO 11/08/18 17:00 11/09/18 12:01 SONG COLLAZO III DO Nov 09, 2018 13:20
--- NOTE | 2018-11-09 14:22 | DS ---
DATE OF DISCHARGE: 11/09/2018 ADMISSION DIAGNOSIS: Left foot cellulitis. DISCHARGE DIAGNOSIS: Resolving left foot cellulitis. CONSULTS: Infectious Disease. PROCEDURES: None. HOSPITAL COURSE: The patient is a pleasant 53-year-old female who presented with cellulitis of her left foot. She was admitted. We gave her IV antibiotics. I consulted Infectious Disease. They have seen her and are okay with her going home. They left a prescription for Keflex. The patient was seen and examined this morning. Heart tones were normal. Her lungs were clear. The extremities showed improvement of her left foot cellulitis. Psychiatric, she is stable. We plan to discharge. DISPOSITION: Home. ACTIVITY: As tolerated. DIET: Low sodium. MEDICATIONS: Please see the MRAD. TOTAL TIME: 34 minutes. SONG COLLAZO DO DR: HALIMA/domenico JOB#: [id number] / [id number]
[2018-11-09 15:00] VITALS: BP 130/75
[2018-11-09 19:00] VITALS: BP 119/68
[2018-11-09] MEDS: ENOXAPARIN 40 MG/0.4 ML SYRINGE. SQ SCH (22:23)
[2018-11-09 23:00] VITALS: BP 130/70
[2018-11-10 03:06] VITALS: BP 114/66
[2018-11-10 06:24] LABS: CREATININE 0.7 mg/dL (0.6-1.0); GFR 87.5
[2018-11-10 06:35] LABS: BASO # 0.1 x10^3/uL (0.0-0.2); BASO % 1 % (0-3); EOS # 0.5 x10^3/uL (0.0-0.7); EOS % 6 % (0-3); HEMOGLOBIN 14.2 g/dL (12.0-15.5); LYMPH # 2.9 x10^3/uL (1.0-4.8); LYMPH % 34 % (24-48); MEAN CORPUSCULAR HEMOGLOBIN 32 pg (25-35); MEAN CORPUSCULAR HGB CONC 34 g/dL (31-37); MEAN CORPUSCULAR VOLUME 95 fL (79-100); MONO # 0.7 x10^3/uL (0.0-1.1); MONO % 8 % (0-9); NEUT # 4.3 x10^3/uL (1.8-7.7); NEUT % 51 % (31-73); PLATELET COUNT 223 x10^3/uL (140-400); RED BLOOD COUNT 4.44 x10^6/uL (3.50-5.40); RED CELL DISTRIBUTION WIDTH 12.4 % (11.5-14.5); WHITE BLOOD COUNT 8.5 x10^3/uL (4.0-11.0)
[2018-11-10 07:00] VITALS: BP 132/68
[2018-11-10] MEDS ORDERED: CEPH-264 PO (09:01)
[2018-11-10] MEDS: LACTOBACILLUS RHAMNOSUS GG 1 CAPSULE. PO SCH (09:07)
[2018-11-10] MEDS: CEPHALEXIN 250 MG CAPSULE. PO SCH (09:07)
[2018-11-10] MEDS: PANTOPRAZOLE 40 MG TABLET.DR. PO SCH (09:07)
--- NOTE | 2018-11-10 10:40 | PDOC3 ---
Discharge Summary Visit Information Date of Admission: Nov 06, 2018 Date of Discharge: Nov 10, 2018 Admitting Diagnosis Comment: ADMISSION DIAGNOSIS: Left foot cellulitis. Final Diagnosis Problems Medical Problems: (1) Cellulitis of left foot Status: Acute Brief Hospital Course Allergies Allergies Coded Allergies Type Severity Reaction Last Updated Verified No Known Drug Allergies 04/05/18 No Vital Signs Vital Signs Date Time Temp Pulse Resp B/P (MAP) Pulse Ox O2 Delivery O2 Flow Rate FiO2 11/10/18 07:00 98.0 58 14 132/68 (89) 98 Room Air 98.0 Lab Results Laboratory Tests Test 11/09/18 03:45 11/10/18 05:15 White Blood Count 6.6 x10^3/uL (4.0-11.0) 8.5 x10^3/uL (4.0-11.0) Red Blood Count 4.26 x10^6/uL (3.50-5.40) 4.44 x10^6/uL (3.50-5.40) Hemoglobin 13.5 g/dL (12.0-15.5) 14.2 g/dL (12.0-15.5) Hematocrit 40.3 % (36.0-47.0) 42.0 % (36.0-47.0) Mean Corpuscular Volume 95 fL (79-100) 95 fL (79-100) Mean Corpuscular Hemoglobin 32 pg (25-35) 32 pg (25-35) Mean Corpuscular Hemoglobin Concent 33 g/dL (31-37) 34 g/dL (31-37) Red Cell Distribution Width 12.3 % (11.5-14.5) 12.4 % (11.5-14.5) Platelet Count 218 x10^3/uL (140-400) 223 x10^3/uL (140-400) Neutrophils (%) (Auto) 48 % (31-73) 51 % (31-73) Lymphocytes (%) (Auto) 36 % (24-48) 34 % (24-48) Monocytes (%) (Auto) 8 % (0-9) 8 % (0-9) Eosinophils (%) (Auto) 8 % (0-3) 6 % (0-3) Basophils (%) (Auto) 1 % (0-3) 1 % (0-3) Neutrophils # (Auto) 3.2 x10^3/uL (1.8-7.7) 4.3 x10^3/uL (1.8-7.7) Lymphocytes # (Auto) 2.4 x10^3/uL (1.0-4.8) 2.9 x10^3/uL (1.0-4.8) Monocytes # (Auto) 0.5 x10^3/uL (0.0-1.1) 0.7 x10^3/uL (0.0-1.1) Eosinophils # (Auto) 0.5 x10^3/uL (0.0-0.7) 0.5 x10^3/uL (0.0-0.7) Basophils # (Auto) 0.0 x10^3/uL (0.0-0.2) 0.1 x10^3/uL (0.0-0.2) Sodium Level 145 mmol/L (136-145) Potassium Level 4.0 mmol/L (3.5-5.1) Chloride Level 109 mmol/L (98-107) Carbon Dioxide Level 28 mmol/L (21-32) Anion Gap 8 (6-14) Blood Urea Nitrogen 11 mg/dL (7-20) Creatinine 0.8 mg/dL (0.6-1.0) 0.7 mg/dL (0.6-1.0) Estimated GFR (Cockcroft-Gault) 75.0 87.5 BUN/Creatinine Ratio 14 (6-20) Glucose Level 134 mg/dL (70-99) Calcium Level 8.6 mg/dL (8.5-10.1) Total Bilirubin 0.3 mg/dL (0.2-1.0) Aspartate Amino Transf (AST/SGOT) 23 U/L (15-37) Alanine Aminotransferase (ALT/SGPT) 22 U/L (14-59) Alkaline Phosphatase 110 U/L (46-116) Total Protein 6.6 g/dL (6.4-8.2) Albumin 3.0 g/dL (3.4-5.0) Albumin/Globulin Ratio 0.8 (1.0-1.7) Laboratory Tests Test 11/10/18 05:15 White Blood Count 8.5 x10^3/uL (4.0-11.0) Red Blood Count 4.44 x10^6/uL (3.50-5.40) Hemoglobin 14.2 g/dL (12.0-15.5) Hematocrit 42.0 % (36.0-47.0) Mean Corpuscular Volume 95 fL (79-100) Mean Corpuscular Hemoglobin 32 pg (25-35) Mean Corpuscular Hemoglobin Concent 34 g/dL (31-37) Red Cell Distribution Width 12.4 % (11.5-14.5) Platelet Count 223 x10^3/uL (140-400) Neutrophils (%) (Auto) 51 % (31-73) Lymphocytes (%) (Auto) 34 % (24-48) Monocytes (%) (Auto) 8 % (0-9) Eosinophils (%) (Auto) 6 % (0-3) Basophils (%) (Auto) 1 % (0-3) Neutrophils # (Auto) 4.3 x10^3/uL (1.8-7.7) Lymphocytes # (Auto) 2.9 x10^3/uL (1.0-4.8) Monocytes # (Auto) 0.7 x10^3/uL (0.0-1.1) Eosinophils # (Auto) 0.5 x10^3/uL (0.0-0.7) Basophils # (Auto) 0.1 x10^3/uL (0.0-0.2) Creatinine 0.7 mg/dL (0.6-1.0) Estimated GFR (Cockcroft-Gault) 87.5 Brief Hospital Course Ms. Mcneill is a 53 old Khmer speaking only female was admitted for left foot cellulitis comanage with ID. Nontoxic appearing, no skin break. Okayed by ID for Keflex for 6 more days. Colleague discharge yesterday but apparently she was not aware of this. I had to discuss with her discharge plans etc. lots of questions, via phone web knitter as no family at bedside, took 30 minutes in room for this alone. Was okay with discharging Keflex by mouth for 6 more days Consults performed by ID Procedures performed none Time spent discharging 30 minutes PT at bedside, via phone web knitter Khmer speaking only I have unwrapped the dressing and inspected wound myself today Discharge Information Condition at Discharge: Improved, Stable Disposition/Orders: D/C to Home Scheduled Cephalexin (Keflex) 500 Mg Capsule, 1 CAP PO TID for cellulitis for 6 Days, #18 Prescribed by: YARIEL PULIDO on 11/10/18 0901 Omeprazole (Omeprazole) 20 Mg Capsule.dr, 20 MG PO DAILYAC for gerd, (Reported) Entered as Reported by: ARVIN ASHLEY RN on 11/06/182008 Last Taken: UNKNOWN on Unknown Date & Time Last Action: Reviewed on 11/07/1833 by ARVIN ASHLEY RN Scheduled PRN Hydrocodone/Apap 5-325 ([place] 5-325 Tablet) 1 Each Tablet, 1-2 EACH PO PRN Q6HRS PRN for PAIN, #15 as needed for pain Prescribed by: CRISTIAN JO D.O. on 10/24/18 1739 Last Action: Reviewed on 11/07/1833 by [place] STAFFORD CHERRIE Y MD Nov 10, 2018 10:40
[2018-11-10 11:00] VITALS: BP 109/64
--- NOTE | 2018-11-10 11:26 | NUR ---
SW following pt. Discussed with RN and pt had declined SNU eval and want to go home with family today.
--- NOTE | 2018-11-10 12:43 | NUR ---
Pt stable upon discharge. New meds and discharge instructions discussed with pt and daughter. Pt left with daughter via private vehicle.
== END 2018-11-10 12:30 | disposition home or self-care (01) | DRG 603 ==
LOC: ER 17:50 → 5 SOUTH 18:41
PROVIDERS: ADMIT Internal Medicine; ATTEND Internal Medicine
DX: L03.116 Cellulitis of left lower limb (principal); S93.402A Sprain of unspecified ligament of left ankle, initial encounter; E86.0 Dehydration; R79.82 Elevated C-reactive protein (CRP); K21.9 Gastro-esophageal reflux disease without esophagitis; I50.9 Heart failure, unspecified; I11.0 Hypertensive heart disease with heart failure; Z82.49 Family history of ischemic heart disease and other diseases of the circulatory system; L03.115 Cellulitis of right lower limb; X58.XXXA Exposure to other specified factors, initial encounter; Y93.89 Activity, other specified; Y92.89 Other specified places as the place of occurrence of the external cause; Y99.8 Other external cause status
CPT/HCPCS: 36415; 73620; 80053; 80202; 82565; 83735; 85025; 85610; 85651; 85730; 86140; 87040; 87205; 96365; 96375; J1650; J1885; J3010; J3370; J3490; J7030; J7040; J7050; 97116; 97530; 99285-25

== ENCOUNTER 2018-12-26 23:50 | Emergency (ER) | payer OTHER ==
[~2018-12-26] VITALS: Ht 172.7 cm; Wt 86.2 kg
[~2018-12-26 23:50] MED LIST changes: +CEPH-264 PO; +OMEP20CA10 PO
[2018-12-27] MEDS ORDERED: IV NORMAL SALINE 1000ML BAG 1,000 ML IV SCH (00:30)
[2018-12-27] MEDS ORDERED: LIDO:MAALOX 1:1 20 ML SINGLE DOSE. SWSW ONE (00:30)
[2018-12-27 00:56] LABS: BASO % 1 % (0-3); EOS # 0.2 x10^3/uL (0.0-0.7); EOS % 3 % (0-3); HEMATOCRIT 40.6 % (36.0-47.0); HEMOGLOBIN 13.7 g/dL (12.0-15.5); LYMPH # 2.8 x10^3/uL (1.0-4.8); LYMPH % 35 % (24-48); MEAN CORPUSCULAR HEMOGLOBIN 32 pg (25-35); MEAN CORPUSCULAR HGB CONC 34 g/dL (31-37); MEAN CORPUSCULAR VOLUME 93 fL (79-100); MONO # 0.8 x10^3/uL (0.0-1.1); MONO % 10 % (0-9); NEUT # 4.1 x10^3/uL (1.8-7.7); NEUT % 51 % (31-73); PLATELET COUNT 229 x10^3/uL (140-400); RED BLOOD COUNT 4.34 x10^6/uL (3.50-5.40); RED CELL DISTRIBUTION WIDTH 12.3 % (11.5-14.5); WHITE BLOOD COUNT 7.9 x10^3/uL (4.0-11.0)
[2018-12-27 01:04] LABS: CALCIUM 8.5 mg/dL (8.5-10.1); CREATININE 0.8 mg/dL (0.6-1.0); POTASSIUM 3.5 mmol/L (3.5-5.1)
[2018-12-27 01:10] LABS: ALBUMIN 3.3 g/dL (3.4-5.0); ALBUMIN/GLOBULIN RATIO 0.8 (1.0-1.7); MAGNESIUM 2.1 mg/dL (1.8-2.4); TOTAL BILIRUBIN 0.5 mg/dL (0.2-1.0); TOTAL PROTEIN 7.3 g/dL (6.4-8.2)
[2018-12-27 01:26] LABS: BILIRUBIN,URINE NEGATIVE (NEG); CLARITY,URINE CLEAR; COLOR,URINE YELLOW; NITRITE,URINE NEGATIVE (NEG); PH,URINE 6.5; PROTEIN,URINE NEGATIVE (NEG-TRACE)
[2018-12-27 01:31] LABS: SQUAMOUS EPITHELIAL CELL,UR MOD /LPF
[2018-12-27 01:32] LABS: BACTERIA,URINE 0 /HPF (0-FEW); RBC,URINE OCC /HPF (0-2)
[2018-12-27] MEDS ORDERED: FAMO-63 PO (02:28)
--- NOTE | 2018-12-27 02:28 | PHYS DOC ---
Past Medical History Past Medical History: CHF, GERD, Hypertension Past Surgical History: No Surgical History Alcohol Use: None Drug Use: None Adult General Chief Complaint Chief Complaint: CHEST PAIN HPI HPI Patient is a 53-year-old female who presents with complaint of chest discomfort that started a few hours ago. She states that it goes from the epigastric region up into her mid chest. Patient does has history of GERD. Rates her pain to be an 8 out of 10. She states that nothing seems to worsen or improve the symptoms.[] Review of Systems Review of Systems Constitutional: Denies fever or chills [] Respiratory: Denies cough or shortness of breath [] Cardiovascular: No additional information not addressed in HPI [] GI: Admits to epigastric discomfort without vomiting or diarrhea [] Integument: Denies rash or skin lesions [] Neurologic: Denies headache, focal weakness or sensory changes [] All other systems were reviewed and found to be within normal limits, except as documented in this note. Current Medications Current Medications Current Medications Medications (Trade) Dose Ordered Sig/Estuardo Start Time Stop Time Status Last Admin Dose Admin Multi-Ingredient Mouthwash/Gargle (Gi Cocktail) 20 ml 1X ONCE 12/27/18 00:30 12/27/18 00:31 DC 12/27/18 01:19 20 ML Sodium Chloride 1,000 ml @ 1,000 mls/hr Q1H 12/27/18 00:30 12/27/18 01:29 DC 12/27/18 01:19 1,000 MLS/HR Allergies Allergies Allergies Coded Allergies Type Severity Reaction Last Updated Verified No Known Drug Allergies 04/05/18 No Physical Exam Physical Exam Constitutional: Well developed, well nourished, no acute distress, non-toxic appearance. [] HENT: Normocephalic, atraumatic, bilateral external ears normal, oropharynx moist, no oral exudates, nose normal. [] Eyes: PERRLA, EOMI, conjunctiva normal, no discharge. [] Neck: Normal range of motion, no tenderness, supple, no stridor. [] Cardiovascular:Heart rate regular rhythm, no murmur [] Lungs & Thorax: Bilateral breath sounds clear to auscultation [] Abdomen: Bowel sounds normal, soft, with mild epigastric tenderness. [] Skin: Warm, dry, no erythema, no rash. [] Extremities: No tenderness, no cyanosis, no clubbing, ROM intact, no edema. [] Neurologic: Alert and oriented X 3, no focal deficits noted. [] Current Patient Data Vital Signs Vital Signs Date Time Temp Pulse Resp B/P (MAP) Pulse Ox O2 Delivery O2 Flow Rate FiO2 12/26/18 23:55 98.2 88 165/72 (103) 100 Room Air 98.2 Lab Values Laboratory Tests Test 12/27/18 00:45 12/27/18 01:14 White Blood Count 7.9 x10^3/uL (4.0-11.0) Red Blood Count 4.34 x10^6/uL (3.50-5.40) Hemoglobin 13.7 g/dL (12.0-15.5) Hematocrit 40.6 % (36.0-47.0) Mean Corpuscular Volume 93 fL (79-100) Mean Corpuscular Hemoglobin 32 pg (25-35) Mean Corpuscular Hemoglobin Concent 34 g/dL (31-37) Red Cell Distribution Width 12.3 % (11.5-14.5) Platelet Count 229 x10^3/uL (140-400) Neutrophils (%) (Auto) 51 % (31-73) Lymphocytes (%) (Auto) 35 % (24-48) Monocytes (%) (Auto) 10 % (0-9) H Eosinophils (%) (Auto) 3 % (0-3) Basophils (%) (Auto) 1 % (0-3) Neutrophils # (Auto) 4.1 x10^3/uL (1.8-7.7) Lymphocytes # (Auto) 2.8 x10^3/uL (1.0-4.8) Monocytes # (Auto) 0.8 x10^3/uL (0.0-1.1) Eosinophils # (Auto) 0.2 x10^3/uL (0.0-0.7) Basophils # (Auto) 0.0 x10^3/uL (0.0-0.2) Sodium Level 145 mmol/L (136-145) Potassium Level 3.5 mmol/L (3.5-5.1) Chloride Level 107 mmol/L (98-107) Carbon Dioxide Level 31 mmol/L (21-32) Anion Gap 7 (6-14) Blood Urea Nitrogen 10 mg/dL (7-20) Creatinine 0.8 mg/dL (0.6-1.0) Estimated GFR (Cockcroft-Gault) 75.0 BUN/Creatinine Ratio 13 (6-20) Glucose Level 100 mg/dL (70-99) H Calcium Level 8.5 mg/dL (8.5-10.1) Magnesium Level 2.1 mg/dL (1.8-2.4) Total Bilirubin 0.5 mg/dL (0.2-1.0) Aspartate Amino Transferase (AST) 22 U/L (15-37) Alanine Aminotransferase (ALT) 18 U/L (14-59) Alkaline Phosphatase 101 U/L (46-116) Troponin I Quantitative < 0.017 ng/mL (0.000-0.055) Total Protein 7.3 g/dL (6.4-8.2) Albumin 3.3 g/dL (3.4-5.0) L Albumin/Globulin Ratio 0.8 (1.0-1.7) L Lipase 142 U/L (73-393) Urine Collection Type Unknown Urine Color Yellow Urine Clarity Clear Urine pH 6.5 Urine Specific [place] 1.015 Urine Protein Negative mg/dL (NEG-TRACE) Urine Glucose (UA) Negative mg/dL (NEG) Urine Ketones (Stick) Negative mg/dL (NEG) Urine Blood Trace (NEG) Urine Nitrite Negative (NEG) Urine Bilirubin Negative (NEG) Urine Urobilinogen Dipstick 1.0 mg/dL (0.2 mg/dL) Urine Leukocyte Esterase Trace (NEG) Urine RBC Occ /HPF (0-2) Urine WBC 5-10 /HPF (0-4) Urine Squamous Epithelial Cells Mod /LPF Urine Calcium Phosphate Crystals /HPF Urine Bacteria 0 /HPF (0-FEW) Urine Mucus Marked /LPF Laboratory Tests 12/27/18 00:45 Laboratory Tests 12/27/18 00:45 EKG EKG [] Interpretation Time: EKG demonstrates a normal sinus rhythm with rate of 70. Radiology/Procedures Radiology/Procedures [] Impressions: Chest x-ray demonstrates no acute process. Course & Med Decision Making Course & Med Decision Making Pertinent Labs and Imaging studies reviewed. (See chart for details) [] Dragon Disclaimer Dragon Disclaimer This electronic medical record was generated, in whole or in part, using a voice recognition dictation system. Departure Departure Impression: Primary Impression: Gastroesophageal reflux Additional Impression: Atypical chest pain Disposition: HOME, SELF-CARE Condition: STABLE Referrals: CESAR GRIFFITHS DO (PCP) Patient Instructions: Chest Pain (Nonspecific), Diet for Gastroesophageal Reflux Disease, Adult Scripts Famotidine (PEPCID) 20 Mg Tablet 20 MG PO BID, #30 TAB Prov: LIZ REEVES Jr., DO 12/27/18 Problem Qualifiers Primary Impression: Gastroesophageal reflux Esophagitis presence: esophagitis presence not specified Qualified Codes: K21.9 - Gastro-esophageal reflux disease without esophagitis LIZ REEVES Jr., DO Dec 27, 2018 02:28
[2018-12-27 02:47] VITALS: BP 129/74
--- NOTE | 2018-12-27 04:32 | RAD ---
Chest AP portable at 12:20 AM: Reason for examination: Chest pain. The heart size is normal. Mediastinum is unremarkable. Lung hernández are clear. No acute bony abnormalities are seen. Impression: No acute cardiopulmonary disease. Electronically signed by: Amelia Whitmore MD (12/27/2018 4:29 AM) [facility]
--- NOTE | 2018-12-29 04:31 | EKG ---
[facility] [address] [place] [address] Test Date: 2018-12-27 Test Time: 00:01:51 Pat Name: MARY CATES Department: Room: Gender: F Slurry Tank Tender: : 1965 Requested By: LIZ REEVES Order Number: [id number] Reading MD: Measurements Intervals [place] Rate: 70 P: 36 ME: 142 QRS: 12 QRSD: 74 T: 14 QT: 416 QTc: 452 Interpretive Statements SINUS RHYTHM R-S TRANSITION ZONE IN V LEADS DISPLACED TO THE RIGHT OTHERWISE NORMAL ECG RI6.01 No previous ECG available for comparison
== END 2018-12-27 03:20 | disposition home or self-care (01) ==
LOC: ER 23:50
DX: K21.9 Gastro-esophageal reflux disease without esophagitis (principal); R07.89 Other chest pain; I50.9 Heart failure, unspecified; I11.0 Hypertensive heart disease with heart failure
CPT/HCPCS: 36415; 71045; 80053; 81001; 83690; 83735; 84484; 85025; 87086; 93005; 99285; J7030

== ENCOUNTER 2019-05-14 22:45 | Emergency (ER) | payer OTHER ==
[~2019-05-14] VITALS: Ht 157.5 cm; Wt 69.9 kg
[~2019-05-14 22:45] MED LIST changes: +FAMO-63 PO; -OMEP20CA10 PO; +OMEP20CA16 PO
[2019-05-14 22:55] VITALS: BP 138/65
[2019-05-14] MEDS ORDERED: HYDR25TA PO (23:20)
[2019-05-14] MEDS ORDERED: TRIA15CR3 TP (23:20)
--- NOTE | 2019-05-14 23:21 | PHYS DOC ---
Past Medical History Past Medical History: CHF, GERD, Hypertension Past Surgical History: No Surgical History Alcohol Use: None Drug Use: None Adult General Chief Complaint Chief Complaint: SKIN PROBLEM HPI HPI Patient is a 53 year old female who presents to the ED today complaining of a rash to bilateral lower extremity that she's had for 3 years but has gotten more itchy the last 3 days. Patient reports she is using terbinafine with no relief Review of Systems Review of Systems Constitutional: Denies fever or chills [] Musculoskeletal: Denies back pain or joint pain [] Integument: Reports pruritic rash Neurologic: Denies headache, focal weakness or sensory changes [] All other systems were reviewed and found to be within normal limits, except as documented in this note. Allergies Allergies Allergies Coded Allergies Type Severity Reaction Last Updated Verified No Known Drug Allergies 04/05/18 No Physical Exam Physical Exam Constitutional: Well developed, well nourished, no acute distress, non-toxic appearance. [] Skin: Bilateral lower extremities with small amount of dry excoriated rash. The rash appears old. Back: No tenderness, no CVA tenderness. [] Extremities: No tenderness, no cyanosis, no clubbing, ROM intact, no edema. [] Neurologic: Alert and oriented X 3, normal motor function, normal sensory function, no focal deficits noted. [] Psychologic: Affect normal, judgement normal, mood normal. [] Current Patient Data Vital Signs Vital Signs Date Time Temp Pulse Resp B/P (MAP) Pulse Ox O2 Delivery O2 Flow Rate FiO2 05/14/19 22:55 97.7 76 12 138/65 (89) 96 Room Air 97.7 EKG EKG [] Radiology/Procedures Radiology/Procedures [] Course & Med Decision Making Course & Med Decision Making Pertinent Labs and Imaging studies reviewed. (See chart for details) This is a 53-year-old female patient presenting to the ED today with a rash to bilateral lower extremity that she's had for 3 years but has gotten worse in the last 3 days. She has tried antifungal with no relief. We'll give her triamcinolone cream and hydroxyzine for itching. Follow-up with her primary care doctor or teacher of the emotionally disturbed in 2 weeks. Dragon Disclaimer Dragon Disclaimer This electronic medical record was generated, in whole or in part, using a voice recognition dictation system. Departure Departure Impression: Primary Impression: Rash Disposition: HOME, SELF-CARE Condition: STABLE Referrals: CESAR GRIFFITHS DO (PCP) follow up in 2 weeks Patient Instructions: Rash Additional Instructions: You were evaluated in the emergency room for a rash to your bilateral lower extremities. Use the prescribed medications as ordered, follow-up with your doctor in 2 weeks Your prescriptions were sent to the pharmacy. Scripts Hydroxyzine Hcl (HYDROXYZINE HCL) 25 Mg Tablet 1 TAB PO TID, #30 TAB Prov: RYLAN BAI APRN 05/14/19 Triamcinolone Acetonide (TRIAMCINOLONE ACETONIDE 0.1% CREAM) 15 Gm Cream..g. 1 JANINE TP TID, #1 TUBE Prov: RYLAN BAI APRN 05/14/19 RYLAN BAI APRN May 14, 2019 23:20
== END 2019-05-14 23:33 | disposition home or self-care (01) ==
LOC: ER 22:45
DX: R21 Rash and other nonspecific skin eruption (principal); L29.8 Other pruritus; I11.0 Hypertensive heart disease with heart failure; I50.9 Heart failure, unspecified; K21.9 Gastro-esophageal reflux disease without esophagitis
CPT/HCPCS: 99283

== ENCOUNTER 2019-11-08 18:51 | Emergency (ER) | payer OTHER ==
[~2019-11-08] VITALS: Ht 162.6 cm; Wt 80.0 kg
[~2019-11-08 18:51] MED LIST changes: +HYDR25TA PO; +TRIA15CR3 TP
[2019-11-08 19:35] VITALS: BP 127/73
--- NOTE | 2019-11-08 20:08 | PHYS DOC ---
Past Medical History Past Medical History: CHF, GERD, Hypertension Past Surgical History: No Surgical History Smoking Status: Never Smoker Alcohol Use: None Drug Use: None General Adult EDM: Chief Complaint: LOWEREXTREMITY INJURY HPI: HPI: Patient is a 54-year-old female presents with a chief complaint of right ankle pain. Per history patient fell out of the bathtub. Injuring her right ankle. On exam there is significant swelling at the right ankle. Area is tender to palpation. Patient has pain with range of motion of the ankle. Patient denies any knee injury. She denies hitting her head. Patient has no other complaints. Review of Systems: Review of Systems: Constitutional: Denies fever or chills. [] Eyes: Denies change in visual acuity. [] HENT: Denies nasal congestion or sore throat. [] Respiratory: Denies cough or shortness of breath. [] Cardiovascular: Denies chest pain or edema. [] GI: Denies abdominal pain, nausea, vomiting, bloody stools or diarrhea. [] : Denies dysuria. [] Musculoskeletal: Positive ankle pain Integument: Denies rash. [] Neurologic: Denies headache, focal weakness or sensory changes. [] Endocrine: Denies polyuria or polydipsia. [] Lymphatic: Denies swollen glands. [] Psychiatric: Denies depression or anxiety. [] Heart Score: Risk Factors: Risk Factors: DM, Current or recent (<one month) smoker, HTN, HLP, family history of CAD, obesity. Risk Scores: Score 0 - 3: 2.5% MACE over next 6 weeks - Discharge Home Score 4 - 6: 20.3% MACE over next 6 weeks - Admit for Clinical Observation Score 7 - 10: 72.7% MACE over next 6 weeks - Early Invasive Strategies Allergies: Allergies: Allergies Coded Allergies Type Severity Reaction Last Updated Verified No Known Drug Allergies 04/05/18 No Physical Exam: PE: Constitutional: Well developed, well nourished, no acute distress, non-toxic appearance. [] HENT: Normocephalic, atraumatic, bilateral external ears normal, oropharynx moist, no oral exudates, nose normal. [] Eyes: PERRLA, EOMI, conjunctiva normal, no discharge. [] Neck: Normal range of motion, no tenderness, supple, no stridor. [] Cardiovascular:Heart rate regular rhythm, no murmur [] Lungs & Thorax: Bilateral breath sounds clear to auscultation [] Abdomen: Bowel sounds normal, soft, no tenderness, no masses, no pulsatile masses. [] Skin: Warm, dry, no erythema, no rash. [] Back: No tenderness, no CVA tenderness. [] Extremities: swelling right ankle-- ttp right lat mal, lower extremity nvi Neurologic: Alert and oriented X 3, normal motor function, normal sensory function, no focal deficits noted. [] Psychologic: Affect normal, judgement normal, mood normal. [] Current Patient Data: Vital Signs: Vital Signs Date Time Temp Pulse Resp B/P (MAP) Pulse Ox O2 Delivery O2 Flow Rate FiO2 11/08/19 19:35 97.8 94 24 127/73 (91) 96 Room Air 97.8 EKG: EKG: [] Radiology/Procedures: Radiology/Procedures: [] Impression: Xray wet read distal fib fracture Course & Med Decision Making: Course & Med Decision Making Pertinent Labs and Imaging studies reviewed. (See chart for details) []Foot placed in splint-- posterior and sugar tong. Patient tolerated procedure nvi post application. Referred to Ortho. Provided crutches Rx [facility]on Disclaimer: Rajni Disclaimer: This electronic medical record was generated, in whole or in part, using a voice recognition dictation system. Departure Departure Impression: Primary Impression: Closed fibular fracture Disposition: HOME, SELF-CARE Condition: STABLE Referrals: CESAR GRIFFITHS DO (PCP) Patient Instructions: Fibular Fracture with Rehab-SportsMed, Fibular Fracture, Adult, Treated Without Immobilization Scripts Hydrocodone/Apap 5-325 (NORCO 5-325 TABLET) 1 Each Tablet 1 TAB PO PRN Q6HRS PRN for PAIN, #20 TAB 0 Refills Prov: MARCELLUS PAL DO 11/08/19 Justicifation of Admission Dx: Justifications for Admission: Justification of Admission Dx: N/A MARCELLUS PAL DO Nov 08, 2019 20:08
[2019-11-08] MEDS ORDERED: HYDR-3164 PO (20:58)
--- NOTE | 2019-11-08 21:09 | RAD ---
Three-view right ankle dated 11/08/2019. No comparison available. CLINICAL INDICATION: Pain after twisting injury. FINDINGS: 3 views of the right ankle show an oblique fracture through the distal fibula with fracture lines extending to the ankle mortise, not significantly displaced. There is also possible subtle nondisplaced fracture at the base of the medial malleolus seen on the oblique view. The posterior malleolus is intact. Mild soft tissue swelling. Talar dome is intact. IMPRESSION: 1. Nondisplaced oblique fracture of the distal fibula. 2. Possible small nondisplaced fracture at the base of the medial malleolus. Electronically signed by: Toni Ace MD (11/08/2019 9:06 PM) [facility]
[2019-11-08] MEDS ORDERED: fentaNYL PF VIAL 100 MCG/2 ML VIAL IM ONE (21:30)
== END 2019-11-08 21:20 | disposition home or self-care (01) ==
LOC: ER 18:51
DX: S82.491A Other fracture of shaft of right fibula, initial encounter for closed fracture (principal); R60.0 Localized edema; I10 Essential (primary) hypertension; K21.9 Gastro-esophageal reflux disease without esophagitis; I50.9 Heart failure, unspecified; W18.39XA Other fall on same level, initial encounter; Y93.89 Activity, other specified; Y92.89 Other specified places as the place of occurrence of the external cause; Y99.8 Other external cause status
CPT/HCPCS: 29515; 73610; 96372; 99284; J3010

== ENCOUNTER 2020-04-21 14:06 | Emergency (ER) | payer OTHER ==
[~2020-04-21] VITALS: Ht 157.5 cm; Wt 61.8 kg
--- NOTE | 2020-04-21 14:39 | ED.ADGEN ---
Past Medical History Past Medical History: CHF, GERD, Hypertension Additional Past Medical Histor: gastric ulcer Past Surgical History: No Surgical History Smoking Status: Never Smoker Alcohol Use: None Drug Use: None General Adult EDM: Chief Complaint: ABDOMINAL PAIN HPI: HPI: Patient is a 54 year old female presenting with abdominal pain for 4 days. The pain is in her upper abdomen centralized and sharp in nature. Is the pain is constant and not changed with eating. Denies any fevers, vomiting, diarrhea, cough, chest pain. Patient speaks Swedish and translation provided by son Review of Systems: Review of Systems: Negative other than mentioned in HPI Current Medications: Current Medications Medications (Trade) Dose Ordered Sig/Estuardo Start Time Stop Time Status Last Admin Dose Admin Fentanyl Citrate (Fentanyl 2ml Vial) 75 mcg 1X ONCE 04/21/20 15:15 04/21/20 15:18 DC 04/21/20 15:26 75 MCG Info (CONTRAST GIVEN -- Rx MONITORING) 1 each PRN DAILY PRN 04/21/20 17:15 04/23/20 17:14 Iohexol (Omnipaque 300 Mg/ml) 75 ml 1X ONCE 04/21/20 17:15 04/21/20 17:16 DC 04/21/20 17:15 75 ML Multi-Ingredient Mouthwash/Gargle (Gi Cocktail) 20 ml 1X ONCE 04/21/20 17:30 04/21/20 17:31 DC 04/21/20 17:46 20 ML Allergies: Allergies: Allergies Coded Allergies Type Severity Reaction Last Updated Verified No Known Drug Allergies 04/05/18 No Physical Exam: PE: Constitutional: Well developed, well nourished, no acute distress, non-toxic appearance. [] HENT: Normocephalic, atraumatic, bilateral external ears normal, oropharynx moist, no oral exudates, nose normal. [] Eyes: PERRLA, EOMI, conjunctiva normal, no discharge. [] Neck: Normal range of motion, no tenderness, supple, no stridor. [] Cardiovascular:Heart rate regular rhythm, no murmur [] Lungs & Thorax: Bilateral breath sounds clear to auscultation [] Abdomen: Soft abdomen, no guarding or rebound, no masses or hernias. Skin: Warm, dry, no erythema, no rash. [] Back: No tenderness, no CVA tenderness. [] Extremities: No tenderness, no cyanosis, no clubbing, ROM intact, no edema. [] Neurologic: Alert and oriented X 3, normal motor function, normal sensory function, no focal deficits noted. [] Psychologic: Affect normal, judgement normal, mood normal. [] Current Patient Data: Labs: Laboratory Tests Test 04/21/20 15:00 04/21/20 15:12 04/21/20 15:15 Urine Collection Type Unknown Urine Color Yellow Urine Clarity Clear Urine pH 7.5 (<5.0-8.0) Urine Specific [place] <=1.005 (1.000-1.030) Urine Protein Negative mg/dL (NEG-TRACE) Urine Glucose (UA) Negative mg/dL (NEG) Urine Ketones (Stick) Negative mg/dL (NEG) Urine Blood Negative (NEG) Urine Nitrite Negative (NEG) Urine Bilirubin Negative (NEG) Urine Urobilinogen Dipstick 0.2 mg/dL (0.2 mg/dL) Urine Leukocyte Esterase Negative (NEG) Urine RBC 0 /HPF (0-2) Urine WBC 0 /HPF (0-4) Urine Squamous Epithelial Cells Mod /LPF Urine Bacteria 0 /HPF (0-FEW) White Blood Count 8.0 x10^3/uL (4.0-11.0) Red Blood Count 4.78 x10^6/uL (3.50-5.40) Hemoglobin 15.1 g/dL (12.0-15.5) Hematocrit 44.5 % (36.0-47.0) Mean Corpuscular Volume 93 fL (79-100) Mean Corpuscular Hemoglobin 32 pg (25-35) Mean Corpuscular Hemoglobin Concent 34 g/dL (31-37) Red Cell Distribution Width 12.6 % (11.5-14.5) Platelet Count 231 x10^3/uL (140-400) Neutrophils (%) (Auto) 63 % (31-73) Lymphocytes (%) (Auto) 24 % (24-48) Monocytes (%) (Auto) 9 % (0-9) Eosinophils (%) (Auto) 2 % (0-3) Basophils (%) (Auto) 1 % (0-3) Neutrophils # (Auto) 5.1 x10^3/uL (1.8-7.7) Lymphocytes # (Auto) 1.9 x10^3/uL (1.0-4.8) Monocytes # (Auto) 0.7 x10^3/uL (0.0-1.1) Eosinophils # (Auto) 0.2 x10^3/uL (0.0-0.7) Basophils # (Auto) 0.1 x10^3/uL (0.0-0.2) Sodium Level 143 mmol/L (136-145) Potassium Level 3.8 mmol/L (3.5-5.1) Chloride Level 105 mmol/L (98-107) Carbon Dioxide Level 33 mmol/L (21-32) H Anion Gap 5 (6-14) L Blood Urea Nitrogen 8 mg/dL (7-20) Creatinine 0.6 mg/dL (0.6-1.0) Estimated GFR (Cockcroft-Gault) 104.2 BUN/Creatinine Ratio 13 (6-20) Glucose Level 92 mg/dL (70-99) Lactic Acid Level 1.3 mmol/L (0.4-2.0) Calcium Level 8.9 mg/dL (8.5-10.1) Total Bilirubin 0.3 mg/dL (0.2-1.0) Aspartate Amino Transferase (AST) 39 U/L (15-37) H Alanine Aminotransferase (ALT) 32 U/L (14-59) Alkaline Phosphatase 134 U/L (46-116) H Troponin I Quantitative < 0.017 ng/mL (0.000-0.055) Total Protein 7.8 g/dL (6.4-8.2) Albumin 3.6 g/dL (3.4-5.0) Albumin/Globulin Ratio 0.9 (1.0-1.7) L Lipase 109 U/L (73-393) Laboratory Tests 04/21/20 15:12 Laboratory Tests 04/21/20 15:15 Vital Signs: Vital Signs Date Time Temp Pulse Resp B/P (MAP) Pulse Ox O2 Delivery O2 Flow Rate FiO2 04/21/20 15:26 16 97 04/21/20 14:25 98.5 77 135/77 (96) 98.5 EKG: EKG: Normal sinus rhythm, heart rate 69 bpm, borderline left axis deviation, normal intervals, no ectopy, no ST elevation or depression [] Heart Score: Risk Factors: Risk Factors: DM, Current or recent (<one month) smoker, HTN, HLP, family history of CAD, obesity. Risk Scores: Score 0 - 3: 2.5% MACE over next 6 weeks - Discharge Home Score 4 - 6: 20.3% MACE over next 6 weeks - Admit for Clinical Observation Score 7 - 10: 72.7% MACE over next 6 weeks - Early Invasive Strategies Radiology/Procedures: Radiology/Procedures: CT abdomen pelvis with contrast. HISTORY: Upper abdominal pain CT scan the abdomen pelvis was done using 75 mL Omnipaque 300 contrast. There is mild atelectasis in the lung bases. There is diffuse fatty infiltration the liver without a focal liver lesion. Spleen and adrenal glands are normal. Pancreas is normal. There is no mass or hydronephrosis in the kidneys. A ureteral calculus is not identified. Bowel pattern is normal. Appendix is normal. There is a 4.7 x 4.2 cm cyst in the right ovary. There is a 3.5 x 2.8 cm cyst in the left ovary. Uterus is normal in appearance. IMPRESSION: 1. Fatty change in the liver. 2. Mild atelectasis in the lung bases without other infiltrates. 3. Bilateral ovarian cysts. 4. No bowel obstruction or other acute finding. 5. Normal appendix. [] Course & Med Decision Making: Course & Med Decision Making Pertinent Labs and Imaging studies reviewed. (See chart for details) [] Dragon Disclaimer: Dragon Disclaimer: This electronic medical record was generated, in whole or in part, using a voice recognition dictation system. Departure Departure Impression: Primary Impression: Epigastric abdominal pain Disposition: 01 HOME SELF CARE/HOMELESS Condition: STABLE Referrals: UNKNOWN PCP NAME (PCP) Patient Instructions: Diet for Gastroesophageal Reflux Disease, Adult, [id number] Scripts Famotidine (FAMOTIDINE) 20 Mg Tablet 20 MG PO BID for stomach pain for 10 Days, #20 TAB Prov: LENNY UNGER MD 04/21/20 LENNY UNGER MD Apr 21, 2020 14:39
[2020-04-21] MEDS ORDERED: fentaNYL PF VIAL 100 MCG/2 ML VIAL IVP ONE (15:15)
[2020-04-21 15:28] LABS: BASO # 0.1 x10^3/uL (0.0-0.2); BASO % 1 % (0-3); EOS # 0.2 x10^3/uL (0.0-0.7); EOS % 2 % (0-3); HEMATOCRIT 44.5 % (36.0-47.0); HEMOGLOBIN 15.1 g/dL (12.0-15.5); LYMPH # 1.9 x10^3/uL (1.0-4.8); LYMPH % 24 % (24-48); MEAN CORPUSCULAR HEMOGLOBIN 32 pg (25-35); MEAN CORPUSCULAR HGB CONC 34 g/dL (31-37); MEAN CORPUSCULAR VOLUME 93 fL (79-100); MONO # 0.7 x10^3/uL (0.0-1.1); MONO % 9 % (0-9); NEUT # 5.1 x10^3/uL (1.8-7.7); NEUT % 63 % (31-73); PLATELET COUNT 231 x10^3/uL (140-400); RED BLOOD COUNT 4.78 x10^6/uL (3.50-5.40); RED CELL DISTRIBUTION WIDTH 12.6 % (11.5-14.5)
[2020-04-21 15:47] LABS: BILIRUBIN,URINE NEGATIVE (NEG); CLARITY,URINE CLEAR; COLOR,URINE YELLOW; NITRITE,URINE NEGATIVE (NEG); PH,URINE 7.5 (<5.0-8.0); PROTEIN,URINE NEGATIVE (NEG-TRACE); UROBILINOGEN,URINE 0.2 mg/dL (0.2 mg/dL)
[2020-04-21 15:57] LABS: BACTERIA,URINE 0 /HPF (0-FEW); RBC,URINE 0 /HPF (0-2); WBC,URINE 0 /HPF (0-4)
[2020-04-21 16:36] LABS: ALBUMIN 3.6 g/dL (3.4-5.0); ALBUMIN/GLOBULIN RATIO 0.9 (1.0-1.7); CALCIUM 8.9 mg/dL (8.5-10.1); CREATININE 0.6 mg/dL (0.6-1.0); GFR 104.2; POTASSIUM 3.8 mmol/L (3.5-5.1); TOTAL BILIRUBIN 0.3 mg/dL (0.2-1.0); TOTAL PROTEIN 7.8 g/dL (6.4-8.2)
[2020-04-21] MEDS ORDERED: CONTRAST GIVEN. MC PRN (17:15)
[2020-04-21] MEDS ORDERED: IOHEXOL 300 MG/ML 100ML VIAL. IV ONE (17:15)
[2020-04-21] MEDS ORDERED: LIDO:MAALOX 1:1 20 ML SINGLE DOSE. SWSW ONE (17:30)
--- NOTE | 2020-04-21 17:34 | RAD ---
CT abdomen pelvis with contrast. HISTORY: Upper abdominal pain CT scan the abdomen pelvis was done using 75 mL Omnipaque 300 contrast. There is mild atelectasis in the lung bases. There is diffuse fatty infiltration the liver without a focal liver lesion. Spleen an d adrenal glands are normal. Pancreas is normal. There is no mass or hydronephrosis in the kidneys. A ureteral calculus is not identified. Bowel pattern is normal. Appendix is normal. There is a 4.7 x 4 .2 cm cyst in the right ovary. There is a 3.5 x 2.8 cm cyst in the left ovary. Uterus is normal in ap pearance. IMPRESSION: 1. Fatty change in the liver. 2. Mild atelectasis in the lung bases without other infiltrates. 3. Bilateral ovarian cysts. 4. No bowel obstruction or other acute finding. 5. Normal appendix. PQRS Compliance Statement: One or more of the following individualized dose reduction techniques were utilized for this examinat ion: 1. Automated exposure control 2. Adjustment of the mA and/or kV according to patient size 3. Use of iterative reconstruction technique Electronically signed by: Mani Reed MD (04/21/2020 5:32 PM) [facility]
[2020-04-21 18:14] VITALS: BP 125/62
[2020-04-21] MEDS ORDERED: FAMO20TA5 PO (18:16)
== END 2020-04-21 18:34 | disposition home or self-care (01) ==
LOC: ER 14:06
DX: R10.13 Epigastric pain (principal); I11.0 Hypertensive heart disease with heart failure; I50.9 Heart failure, unspecified; K21.9 Gastro-esophageal reflux disease without esophagitis
CPT/HCPCS: 36415; 74177; 80053; 81001; 83605; 83690; 84484; 85025; 96374; 99285; J3010; Q9967

== ENCOUNTER 2021-07-05 20:45 | Observation (INO) | payer OTHER ==
[~2021-07-05] VITALS: Ht 154.9 cm; Wt 72.6 kg
[~2021-07-05 20:45] MED LIST changes: +FAMO20TA5 PO
[2021-07-05 21:54] LABS: BASO % 0 % (0-3); EOS # 0.2 x10^3/uL (0.0-0.7); EOS % 4 % (0-3); HEMOGLOBIN 13.3 g/dL (12.0-15.5); LYMPH # 1.4 x10^3/uL (1.0-4.8); LYMPH % 25 % (24-48); MEAN CORPUSCULAR HEMOGLOBIN 31 pg (25-35); MEAN CORPUSCULAR HGB CONC 33 g/dL (31-37); MEAN CORPUSCULAR VOLUME 96 fL (79-100); MONO # 0.5 x10^3/uL (0.0-1.1); MONO % 10 % (0-9); NEUT # 3.4 x10^3/uL (1.8-7.7); NEUT % 61 % (31-73); PLATELET COUNT 186 x10^3/uL (140-400); RED BLOOD COUNT 4.27 x10^6/uL (3.50-5.40); WHITE BLOOD COUNT 5.5 x10^3/uL (4.0-11.0)
[2021-07-05 21:56] LABS: BILIRUBIN,URINE NEGATIVE (NEG); CLARITY,URINE CLEAR; COLOR,URINE YELLOW; NITRITE,URINE NEGATIVE (NEG); PH,URINE 5.5 (<5.0-8.0); PROTEIN,URINE NEGATIVE (NEG-TRACE); UROBILINOGEN,URINE 0.2 mg/dL (0.2 mg/dL)
[2021-07-05 21:59] LABS: BACTERIA,URINE 0 /HPF (0-FEW); RBC,URINE 0 /HPF (0-2); WBC,URINE RARE /HPF (0-4)
[2021-07-05] MEDS ORDERED: FAMOTIDINE 20 MG/2 ML VIAL IVP ONE (22:00)
[2021-07-05] MEDS ORDERED: ASPIRIN 325 MG TABLET PO ONE (22:00)
--- NOTE | 2021-07-05 22:02 | PHYS DOC ---
Past Medical History Past Medical History: CHF, GERD, Hypertension Additional Past Medical Histor: gastric ulcer Past Surgical History: No Surgical History Smoking Status: Never Smoker Alcohol Use: None Drug Use: None General Adult EDM: Chief Complaint: CHEST PAIN HPI: HPI: Patient is a 56 year old female who presents with mid chest pain that goes down into the stomach area since this morning. Patient states that it does hurt sometimes when she takes a deep breath and in. When asked what the pain feels like the patient is unable to describe it and states " its just pain". She also states that she had some chills yesterday. She states that she has had this kind of pain before. She has not taken any medication to help with the pain. Denies abdominal pain, nausea, vomiting, diarrhea, shortness of breath, numbness or tingling, focal weakness, headache, dizziness, vision change. Patient's daughter is interpreting for the patient. Patient has a history of hypothyroid, hypertension, GERD, gastric ulcer, CHF. Review of Systems: Review of Systems: Constitutional: Denies fever or +chills. [] Eyes: Denies change in visual acuity. [] HENT: Denies nasal congestion or sore throat. [] Respiratory: Denies cough or shortness of breath. [] Cardiovascular: +chest pain or denies edema. [] GI: Denies abdominal pain, nausea, vomiting, bloody stools or diarrhea. [] : Denies dysuria. [] Musculoskeletal: Denies back pain or joint pain. [] Integument: Denies rash. [] Neurologic: Denies headache, focal weakness or sensory changes. [] Endocrine: Denies polyuria or polydipsia. [] Lymphatic: Denies swollen glands. [] Psychiatric: Denies depression or anxiety. [] Heart Score: C/O Chest Pain: Yes HEART Score for Chest Pain: HEART Score for Chest Pain Response (Comments) Value History Slighlty/Non-Suspicious 0 ECG Nonspecific Repolarizatio 1 Age >45 - < 65 1 Risk Factors 1 or 2 Risk Factors 1 Troponin < Normal Limit 0 Total 3 Risk Factors: Risk Factors: DM, Current or recent (<one month) smoker, HTN, HLP, family hi story of CAD, obesity. Risk Scores: Score 0 - 3: 2.5% MACE over next 6 weeks - Discharge Home Score 4 - 6: 20.3% MACE over next 6 weeks - Admit for Clinical Observation Score 7 - 10: 72.7% MACE over next 6 weeks - Early Invasive Strategies Current Medications: Current Medications Medications (Trade) Dose Ordered Sig/Estuardo Start Time Stop Time Status Last Admin Dose Admin Aspirin (Akash Aspirin) 325 mg 1X ONCE 07/05/21 22:00 07/05/21 22:01 Famotidine (Pepcid Vial) 20 mg 1X ONCE 07/05/21 22:00 07/05/21 22:01 Allergies: Allergies: Allergies Coded Allergies Type Severity Reaction Last Updated Verified No Known Drug Allergies 04/05/18 No Physical Exam: PE: Constitutional: Well developed, well nourished, no acute distress, non-toxic appearance. [] HENT: Normocephalic, atraumatic, bilateral external ears normal, oropharynx moist, no oral exudates, nose normal. [] Eyes: PERRLA, EOMI, conjunctiva normal, no discharge. [] Neck: Normal range of motion, no tenderness, supple, no stridor. [] Cardiovascular:Heart rate regular rhythm, no murmur [] Lungs & Thorax: Bilateral breath sounds clear to auscultation [] Abdomen: Bowel sounds normal, soft, no tenderness, no masses, no pulsatile masses. [] Skin: Warm, dry, no erythema, no rash. [] Back: No tenderness, no CVA tenderness. [] Extremities: No tenderness, no cyanosis, no clubbing, ROM intact, no edema. [] Neurologic: Alert and oriented X 3, normal motor function, normal sensory function, no focal deficits noted. [] Psychologic: Affect normal, judgement normal, mood normal. [] Normal physical exam Current Patient Data: Labs: Laboratory Tests Test 07/05/21 21:05 White Blood Count 5.5 x10^3/uL (4.0-11.0) Red Blood Count 4.27 x10^6/uL (3.50-5.40) Hemoglobin 13.3 g/dL (12.0-15.5) Hematocrit 41.0 % (36.0-47.0) Mean Corpuscular Volume 96 fL (79-100) Mean Corpuscular Hemoglobin 31 pg (25-35) Mean Corpuscular Hemoglobin Concent 33 g/dL (31-37) Red Cell Distribution Width 13.0 % (11.5-14.5) Platelet Count 186 x10^3/uL (140-400) Neutrophils (%) (Auto) 61 % (31-73) Lymphocytes (%) (Auto) 25 % (24-48) Monocytes (%) (Auto) 10 % (0-9) H Eosinophils (%) (Auto) 4 % (0-3) H Basophils (%) (Auto) 0 % (0-3) Neutrophils # (Auto) 3.4 x10^3/uL (1.8-7.7) Lymphocytes # (Auto) 1.4 x10^3/uL (1.0-4.8) Monocytes # (Auto) 0.5 x10^3/uL (0.0-1.1) Eosinophils # (Auto) 0.2 x10^3/uL (0.0-0.7) Basophils # (Auto) 0.0 x10^3/uL (0.0-0.2) Laboratory Tests 07/05/21 21:05 Vital Signs: Vital Signs Date Time Temp Pulse Resp B/P (MAP) Pulse Ox O2 Delivery O2 Flow Rate FiO2 07/05/21 20:48 97.8 66 20 136/64 (88) 99 Room Air 97.8 EKG: EK and read by Dr. Pedro as a sinus rhythm, no STEMI Radiology/Procedures: Radiology/Procedures: [] Impression: [facility] [address] [place] [address] IMAGING REPORT Signed PATIENT: MARY CATES ACCOUNT: [id number] : 1965 LOCATION: ER AGE: 56 SEX: F EXAM STATUS: REG ER ORD. PHYSICIAN: ASA WHITING APRN REASON: CHEST PAIN PROCEDURE: PORTABLE CHEST 1V XR CHEST 1V History: Reason: CHEST PAIN / Spl. Instructions: / History: Comparison: December 27, 2018 Findings: Mild ill-defined bibasilar opacities, left greater than right. No pleural effusion. Elevation the right hemidiaphragm. No pneumothorax. Portable technique accentuates cardiac size. Impression: 1. Mild ill-defined bibasilar opacities, likely atelectasis. Electronically signed by: Tyrel Freitas DO (07/05/2021 10:58 PM) [facility] DICTATED and SIGNED BY: TYREL FREITAS DO DATE: 07/05/21 [id number] [facility] [address] [place] [address] IMAGING REPORT Signed PATIENT: FRANCISCO JAVIER LESTER ACCOUNT: [id number] : 04/27/1937 LOCATION: ER AGE: 84 SEX: F EXAM STATUS: REG ER ORD. PHYSICIAN: ASA WHITING APRN REASON: FALL, PAIN PROCEDURE: CT HEAD AND CERVICAL SPINE WO EXAMINATION: CT head and cervical spine without IV contrast. INDICATION:84 years, Female, fall, pain. COMPARISON: None TECHNIQUE: Spiral acquisition of contiguous images from the skull base to the vertex were obtained. CT of the cervical spine was obtained using contiguous spiral imaging from the skull base to the upper thoracic level. Sagittal and coronal 2D reformatted series were provided by the technologist. Soft tissue and bone window algorithms were reviewed. Exposure: One or more of the following individualized dose reduction techniques were utilized for this examination: 1. Automated exposure control 2. Adjustment of the mA and/or kV according to patient size 3. Use of iterative reconstruction technique. FINDINGS: CT HEAD: Neither mass, midline shift, intracranial hemorrhage, acute/subacute ischemic changes, nor extraaxial fluid collections are seen. Mild brain parenchymal volume loss. Supratentorial periventricular white matter hypodensities, indeterminate but most likely representing chronic microangiopathic disease. The paranasal sinuses, mastoid air cells, and middle ears are clear. The orbital contents appear within normal limits. CT CERVICAL SPINE: Anatomic alignment of the cervical spine is maintained. Neither fracture, crump bluxation, nor traumatic spondylolisthesis is seen. The vertebral body heights are preserved. Severe multilevel degenerative changes in the spine. There is no evidence of a large intraspinal hematoma. The prevertebral and paravertebral soft tissues are within normal limits. IMPRESSION: 1. No acute intracranial abnormality. 2. No acute fracture of the cervical spine. Electronically signed by: Analy Curran MD (07/05/2021 11:02 PM) [facility] DICTATED and SIGNED BY: ANALY CURRAN MD DATE: 07/05/21 [id number] Course & Med Decision Making: Course & Med Decision Making Pertinent Labs and Imaging studies reviewed. (See chart for details) See HPI. Alert and oriented x4. Ambulatory steady gait. Speaks in full clear sentences. Abdomen is soft and nontender. Pain is not reproducible with palpation in the chest. No extremity edema. Skin pink warm and dry. Vital signs are within normal limits. EKG is a sinus rhythm without STEMI. Patient is given aspirin, Pepcid, potassium, GI cocktail, Zofran and patient states her pain is only slightly better. Chest x-ray shows no acute findings. Her D-dimer was slightly elevated so I did a CTA of the chest that showed no acute findings. Due to the patient's continued pain and her health history patient will be admitted to the hospital just for observation. Patient is stable and in no distress. [] Graceon Disclaimer: Rajni Disclaimer: This electronic medical record was generated, in whole or in part, using a voice recognition dictation system. Departure Departure Impression: Primary Impression: Chest pain Qualified Codes: R07.9 - Chest pain, unspecified Disposition: ADMITTED INPATIENT Admitting Physician: LC Condition: STABLE Referrals: UNKNOWN PCP NAME (PCP) ASA WHITING APRN Jul 05, 2021 22:02
[2021-07-05 22:03] LABS: CALCIUM 8.3 mg/dL (8.5-10.1); CREATININE 0.7 mg/dL (0.6-1.0); GFR 86.6; POTASSIUM 3.1 mmol/L (3.5-5.1)
[2021-07-05 22:09] LABS: ALBUMIN 3.5 g/dL (3.4-5.0); ALBUMIN/GLOBULIN RATIO 0.8 (1.0-1.7); TOTAL BILIRUBIN 0.5 mg/dL (0.2-1.0)
[2021-07-05] MEDS ORDERED: CONTRAST GIVEN. MC PRN (22:45)
[2021-07-05] MEDS ORDERED: POTASSIUM CHLORIDE 20 MEQ TABLET.ER. PO ONE (23:00)
[2021-07-05] MEDS ORDERED: IOHEXOL 350 MG/ML 100 ML VIAL. IV ONE (23:00)
[2021-07-05] MEDS ORDERED: IV NORMAL SALINE 500ML BAG 500 ML IV ONE (23:00)
[2021-07-05] MEDS ORDERED: ONDANSETRON PF 4 MG/2 ML VIAL. IVP ONE (23:00)
--- NOTE | 2021-07-05 23:01 | RAD ---
XR CHEST 1V History: Reason: CHEST PAIN / Spl. Instructions: / History: Comparison: December 27, 2018 Findings: Mild ill-defined bibasilar opacities, left greater than right. No pleural effusion. Elevation the rig ht hemidiaphragm. No pneumothorax. Portable technique accentuates cardiac size. Impression: 1. Mild ill-defined bibasilar opacities, likely atelectasis. Electronically signed by: Tyrel Freitas DO (07/05/2021 10:58 PM) [facility]
--- NOTE | 2021-07-05 23:27 | RAD ---
EXAMINATION: CTA Chest With IV contrast INDICATION:56 years, Female, chest pain, difficulty breathing, evaluate for pulmonary embolism. COMPARISON: None. TECHNIQUE: Spiral CTA was obtained from the jugular notch through the posterior costophrenic recess. 3-D MIPS, sagittal and coronal reformats were obtained. Exposure: One or more of the following individualized dose reduction techniques were utilized for thi s examination: 1. Automated exposure control 2. Adjustment of the mA and/or kV according to patient size 3. Use of iterative reconstruction technique. FINDINGS: LUNGS/PLEURA: Central airways are patent. Dependent bibasilar subsegmental atelectasis. No focal cons olidation, pleural effusion or pneumothorax. No suspicious pulmonary nodule. MEDIASTINUM: No pathologic mediastinal or hilar adenopathy. The thoracic aorta and pulmonary arteries are normal in caliber. Evaluation for pulmonary embolism is limited by respiratory motion artifact. No central pulmonary embolism to the proximal segmental levels The heart is normal in size. No perica rdial effusion. No detectable calcified coronary atherosclerosis. The visualized thyroid and the esop hagus are unremarkable. AXILLA/SOFT TISSUE: No supraclavicular or axillary adenopathy. Regional soft tissues are within queenie l limits. UPPER ABDOMEN: The visualized upper abdomen appears unremarkable. BONES: No evidence of acute fractures or aggressive osseous lesions. IMPRESSION: Limited evaluation for pulmonary embolism due to respiratory motion artifact. No central pulmonary em bolism to the proximal segmental levels. Electronically signed by: Ron Curran MD (07/05/2021 11:25 PM) [facility]
[2021-07-06] MEDS ORDERED: LIDO:MAALOX 1:1 20 ML SINGLE DOSE. SWSW ONE ×2 (00:30→12:00)
[2021-07-06] MEDS ORDERED: ACETAMINOPHEN 325 MG TABLET. PO PRN (00:45)
[2021-07-06 02:32] VITALS: BP 134/58
[2021-07-06] MEDS ORDERED: FURO40TA4 PO (03:05)
[2021-07-06] MEDS ORDERED: LORA10TA3 PO (03:05)
[2021-07-06] MEDS ORDERED: CYAN10002 IM (03:05)
[2021-07-06] MEDS ORDERED: DICL100G28 TP (03:05)
[2021-07-06] MEDS ORDERED: METH5TAB30 PO (03:05)
[2021-07-06] MEDS ORDERED: MORPHINE SULFATE 4 MG/ML INJ. IV PRN (03:15)
[2021-07-06] MEDS ORDERED: oxyCODONE/APAP 5/325 1 TAB TABLET PO PRN (03:15)
--- NOTE | 2021-07-06 04:40 | NUR ---
Patient arrived to unit at approx 0200. Daughter Loretta translated for patient. Daughter also provided patient past medical history and medications. Bed in low locked postion, call light in reach. will continue to monitor.
--- NOTE | 2021-07-06 06:11 | EKG ---
[facility] [address] [place] [address] Test Date: 2021-07-05 Test Time: 20:53:19 Pat Name: MARY CATES Department: Room: 201 1 Gender: F Health Facilities Surveyor: : 1965 Requested By: ASA WHITING Order Number: [id number] Reading MD: Lars Cardenas Measurements Intervals [place] Rate: 69 P: 33 PA: 144 QRS: 11 QRSD: 72 T: 8 QT: 418 QTc: 449 Interpretive Statements SINUS RHYTHM Electronically Signed On 07-06-2021 8:23:57 [employer] K[employer]ITTER by Lars Cardenas
[2021-07-06 07:30] VITALS: BP 122/56
[2021-07-06] MEDS: DICLOFENAC SODIUM 1% TOPICAL GEL 100GM TUBE. TP SCH ×2 (08:25→13:57)
[2021-07-06] MEDS ORDERED: methIMAzole 10 MG TABLET PO SCH (09:00)
[2021-07-06] MEDS ORDERED: TRIAMCINOLONE ACETONIDE 0.1% TOPICAL CREAM 15GM TUBE. TP SCH (09:00)
[2021-07-06] MEDS ORDERED: CETIRIZINE HCL 10 MG TABLET. PO SCH (09:00)
[2021-07-06] MEDS ORDERED: FUROSEMIDE 40 MG TABLET. PO SCH (09:00)
[2021-07-06 11:00] VITALS: BP 107/48
[2021-07-06] MEDS ORDERED: LIDOCAINE (700MG/PATCH) PATCH. TD SCH (11:00)
--- NOTE | 2021-07-06 11:58 | PDOC2 ---
MOSES NEWTON COMMUTATOR PRESSER 07/06/21 1158: CARDIAC CONSULT DATE OF CONSULT Date of Consult DATE: 07/06/21 TIME: 11:46 REASON FOR CONSULT Reason for Consult: Chest pain REFERRING PHYSICIAN Referring Physician: Silva SOURCE Source: Chart review, Patient HISTORY OF PRESENT ILLNESS HISTORY OF PRESENT ILLNESS This is a pleasant Beninese 56 yo female admitted for complains of chest pain. Reports this started yesterday and could not described what its like but from epigastric straight up to her neck and was worse when she takes deep breath and also epigastric discomfort reproducible with palpation. No nausea or vomiiting. No SOA. No ESPINOZA or exertional CP. No recent falls or injury. No hx of CAD, VTE or arrhythmias. Further details discussed with daughter Taco as she does not speak Stateless much. She is vaccinated for covid-19. PAST MEDICAL HISTORY Cardiovascular: Other (Varicose veins) Endocrine: Hyperthyroidism PAST SURGICAL HISTORY Past Surgical History: Tonsillectomy FAMILY HISTORY Family History noncontributory CURRENT MEDICATIONS CURRENT MEDICATIONS Current Medications Medications (Trade) Dose Ordered Sig/Estuardo Route PRN Reason Start Time Stop Time Status Last Admin Dose Admin Aspirin (Akash Aspirin) 325 mg 1X ONCE PO 07/05/21 22:00 07/05/21 22:01 DC 07/05/21 22:13 Famotidine (Pepcid Vial) 20 mg 1X ONCE IVP 07/05/21 22:00 07/05/21 22:01 DC 07/05/21 22:13 Potassium Chloride (Klor-Con) 40 meq 1X ONCE PO 07/05/21 23:00 07/05/21 23:01 DC 07/05/21 23:55 Ondansetron HCl (Zofran) 4 mg 1X ONCE IVP 07/05/21 23:00 07/05/21 23:01 DC 07/05/21 23:55 Sodium Chloride 500 ml @ 500 mls/hr 1X ONCE IV 07/05/21 23:00 07/05/21 23:59 DC 07/05/21 23:55 Iohexol (Omnipaque 350 Mg/ml) 100 ml 1X ONCE IV 07/05/21 23:00 07/05/21 23:01 DC 07/05/21 22:43 Multi-Ingredient Mouthwash/Gargle (Gi Cocktail) 20 ml 1X ONCE SWSW 07/06/21 00:30 07/06/21 00:31 DC 07/06/21 00:14 Diclofenac Sodium (Voltaren) 1 nohelia QID TP 07/06/21 09:00 07/06/21 08:25 Triamcinolone Acetonide (Kenalog 0.1%) 1 nohelia TID TP 07/06/21 09:00 07/06/21 08:25 Morphine Sulfate (Morphine Sulfate) 4 mg PRN Q2HR PRN IV SEVERE PAIN 7-10 07/06/21 03:15 07/06/21 03:44 ALLERGIES ALLERGIES: Coded Allergies: No Known Drug Allergies (Unverified , 04/05/18) ROS Review of System 14 point ROS evaluated with pertinent positives noted per HPI PHYSICAL EXAM General: Alert, Oriented X3, Cooperative, No acute distress HEENT: Atraumatic, Mucous membr. moist/pink Lungs: Clear to auscultation, Normal air movement Heart: Regular rate (SR), Normal S1, Normal S2, No murmurs Abdomen: Soft, No tenderness Extremities: No cyanosis, No edema Skin: No breakdown, No significant lesion Neuro: Normal speech, Sensation intact Psych/Mental Status: Mental status NL, Mood NL MUSCULOSKELETAL: Osteoarthritic changes both hands VITALS/I&O VITALS/I&O: Vital Signs Date Time Temp Pulse Resp B/P (MAP) Pulse Ox O2 Delivery O2 Flow Rate FiO2 07/06/21 11:00 97.8 67 18 107/48 (67) 92 Room Air 97.8 I & O 07/05/21 07/05/21 07/06/21 15:00 23:00 07:00 Intake Total 1100 ml Balance 1100 ml LABS Lab: Laboratory Tests Test 07/05/21 21:05 07/05/21 21:12 07/06/21 00:03 07/06/21 04:20 White Blood Count 5.5 x10^3/uL (4.0-11.0) Red Blood Count 4.27 x10^6/uL (3.50-5.40) Hemoglobin 13.3 g/dL (12.0-15.5) Hematocrit 41.0 % (36.0-47.0) Mean Corpuscular Volume 96 fL (79-100) Mean Corpuscular Hemoglobin 31 pg (25-35) Mean Corpuscular Hemoglobin Concent 33 g/dL (31-37) Red Cell Distribution Width 13.0 % (11.5-14.5) Platelet Count 186 x10^3/uL (140-400) Neutrophils (%) (Auto) 61 % (31-73) Lymphocytes (%) (Auto) 25 % (24-48) Monocytes (%) (Auto) 10 % (0-9) H Eosinophils (%) (Auto) 4 % (0-3) H Basophils (%) (Auto) 0 % (0-3) Neutrophils # (Auto) 3.4 x10^3/uL (1.8-7.7) Lymphocytes # (Auto) 1.4 x10^3/uL (1.0-4.8) Monocytes # (Auto) 0.5 x10^3/uL (0.0-1.1) Eosinophils # (Auto) 0.2 x10^3/uL (0.0-0.7) Basophils # (Auto) 0.0 x10^3/uL (0.0-0.2) D-Dimer (Emperatriz) 0.98 ug/mlFEU (0.00-0.50) H Sodium Level 139 mmol/L (136-145) Potassium Level 3.1 mmol/L (3.5-5.1) L Chloride Level 103 mmol/L (98-107) Carbon Dioxide Level 31 mmol/L (21-32) Anion Gap 5 (6-14) L Blood Urea Nitrogen 7 mg/dL (7-20) Creatinine 0.7 mg/dL (0.6-1.0) Estimated GFR (Cockcroft-Gault) 86.6 BUN/Creatinine Ratio 10 (6-20) Glucose Level 85 mg/dL (70-99) Calcium Level 8.3 mg/dL (8.5-10.1) L Total Bilirubin 0.5 mg/dL (0.2-1.0) Aspartate Amino Transferase (AST) 42 U/L (15-37) H Alanine Aminotransferase (ALT) 35 U/L (14-59) Alkaline Phosphatase 146 U/L (46-116) H Troponin I High Sensitivity 5 ng/L (4-50) 7 ng/L (4-50) 8 ng/L (4-50) OD-Hfr-E-Type Natriuretic Peptide 146 pg/mL (0-124) H Total Protein 8.0 g/dL (6.4-8.2) Albumin 3.5 g/dL (3.4-5.0) Albumin/Globulin Ratio 0.8 (1.0-1.7) L Lipase 107 U/L (73-393) Urine Collection Type Void Urine Color Yellow Urine Clarity Clear Urine pH 5.5 (<5.0-8.0) Urine Specific [place] <=1.005 (1.000-1.030) Urine Protein Negative mg/dL (NEG-TRACE) Urine Glucose (UA) Negative mg/dL (NEG) Urine Ketones (Stick) Negative mg/dL (NEG) Urine Blood Trace (NEG) Urine Nitrite Negative (NEG) Urine Bilirubin Negative (NEG) Urine Urobilinogen Dipstick 0.2 mg/dL (0.2 mg/dL) Urine Leukocyte Esterase Negative (NEG) Urine RBC 0 /HPF (0-2) Urine WBC Rare /HPF (0-4) Urine Squamous Epithelial Cells Few /LPF Urine Bacteria 0 /HPF (0-FEW) Laboratory Tests 07/05/21 21:05 Laboratory Tests 07/05/21 21:05 ASSESSMENT/PLAN ASSESSMENT/PLAN 1. Atypical chest pain: likely GI. doubt ACS 2. Hyperthyroidism: on tapazole 3. Hypokalemia: due to lasix 4. Isolated fever: Reported 102 on Saturday, none further Recommendations 1. GI cocktail. GERD med per PCP 2. Replace K. I do recommend utilizing lasix PRN basis 3. No further cardiac workup KARL HUITRON MD 07/06/21 1544: CARDIAC CONSULT ASSESSMENT/PLAN ASSESSMENT/PLAN Patient seen and examined. Agree with PAYROLL TAX ANALYST's assessment and plan. Chest pain with atypical features and most probably GI etiology. Myocardial infarction has been ruled out. Telemetry did not show any significant arrhythmias. Replace potassium. Okay for DC from cardiac standpoint. Thank you for your consultation. MOSES NEWTON APRN Jul 06, 2021 11:58 KARL HUITRON MD Jul 06, 2021 15:44
[2021-07-06 12:09] LABS: CHOLESTEROL/HDL RATIO 2.9
--- NOTE | 2021-07-06 12:41 | PDOC1 ---
History and Physical Date of Service: DOS: DATE: 07/06/21 TIME: 12:36 Chief Complaint: Chief Complain: chest pain History of Present Illness: HPI: Patient is a 56 year old female who presents with mid chest pain that goes down into the stomach area since this morning. Patient states that it does hurt sometimes when she takes a deep breath and in. When asked what the pain feels like the patient is unable to describe it and states " its just pain". She also states that she had some chills yesterday. She states that she has had this kind of pain before. She has not taken any medication to help with the pain. Denies abdominal pain, nausea, vomiting, diarrhea, shortness of breath, numbness or tingling, focal weakness, headache, dizziness, vision change. Patient's daughter is interpreting for the patient. Patient has a history of hypothyroid, hypertension, GERD, gastric ulcer, CHF. Past Medical/Surgical History: PMH/PSH: Past Medical History: CHF, GERD, Hypertension Additional Past Medical Histor: gastric ulcer Past Surgical History: No Surgical History Smoking Status: Never Smoker Alcohol Use: None Drug Use: None Allergies: Allergies: Coded Allergies: No Known Drug Allergies (Unverified , 04/05/18) Family History: Family History: HTN Current Medications: Current Medications Current Medications Aspirin (Akash Aspirin) 325 mg 1X ONCE PO Last administered on 07/05/21 22:13; Start 07/05/21 at 22:00; Stop 07/05/21 at 22:01; Status DC Famotidine (Pepcid Vial) 20 mg 1X ONCE IVP Last administered on 07/05/21 22 :13; Start 07/05/21 at 22:00; Stop 07/05/21 at 22:01; Status DC Potassium Chloride (Klor-Con) 40 meq 1X ONCE PO Last administered on 07/05/21 23:55; Start 07/05/21 at 23:00; Stop 07/05/21 at 23:01; Status DC Ondansetron HCl (Zofran) 4 mg 1X ONCE IVP Last administered on 07/05/21 23:55; Start 07/05/21 at 23:00; Stop 07/05/21 at 23:01; Status DC Sodium Chloride 500 ml @ 500 mls/hr 1X ONCE IV Last administered on 3/9/22at 23:55; Start 07/05/21 at 23:00; Stop 07/05/21 at 23:59; Status DC Iohexol (Omnipaque 350 Mg/ml) 100 ml 1X ONCE IV Last administered on 07/05/21at 22:43; Start 07/05/21 at 23:00; Stop 07/05/21 at 23:01; Status DC Info (CONTRAST GIVEN -- Rx MONITORING) 1 each PRN DAILY PRN MC SEE COMMENTS; Start 07/05/21 at 22:45; Stop 07/07/21 at 22:44 Multi-Ingredient Mouthwash/Gargle (Gi Cocktail) 20 ml 1X ONCE SWSW Last administered on 07/06/21at 00:14; Start 07/06/21 at 00:30; Stop 07/06/21 at 00:31; Status DC Acetaminophen (Tylenol) 650 mg PRN Q4HRS PRN PO FEVER > 100.3'F; Start 07/06/21 at 00:45; Stop 07/07/21 at 00:44 Diclofenac Sodium (Voltaren) 1 srini QID TP Last administered on 07/06/21at 08:25; Start 07/06/21 at 09:00 Furosemide (Lasix) 40 mg QAM PO ; Start 07/06/21 at 09:00 Triamcinolone Acetonide (Kenalog 0.1%) 1 srini TID TP Last administered on 07/06/21at 08:25; Start 07/06/21 at 09:00 Cetirizine HCl (ZyrTEC) 10 mg DAILY PO Last administered on 07/06/21 11:55; Start 07/06/21 at 09:00 Methimazole (Tapazole) 5 mg DAILY PO Last administered on 07/06/21at 11:56; Start 07/06/21 at 09:00 Oxycodone/ Acetaminophen (Percocet 5/325) 1 tab PRN Q4HRS PRN PO SEVERE PAIN 7- 10; Start 07/06/21 at 03:15 Morphine Sulfate (Morphine Sulfate) 4 mg PRN Q2HR PRN IV SEVERE PAIN 7-10 Last administered on 07/06/21at 03:44; Start 07/06/21 at 03:15 Lidocaine (Lidoderm) 1 patch DAILY TD Last administered on 07/06/21at 12:17; Start 07/06/21 at 11:00 Miscellaneous (Lidoderm Patch Removal) 1 ea QHS MC ; Start 07/06/21 at 21:00 Multi-Ingredient Mouthwash/Gargle (Gi Cocktail) 20 ml 1X ONCE SWSW Last administered on 07/06/21at 11:55; Start 07/06/21 at 12:00; Stop 07/06/21 at 12:01; Status DC Active Scripts Active Triamcinolone Acetonide 0.1% Cream (Triamcinolone Acetonide) 15 Gm Cream..g. 1 Srini TP TID Reported Methimazole 5 Mg Tablet 1 Tab PO DAILY Diclofenac Sodium 100 Gm Gel..gram. 4 Gm TP QID Furosemide 40 Mg Tablet 1 Tab PO QAM Cyanocobalamin Injection (Cyanocobalamin (Vitamin B-12)) 1,000 Mcg/1 Ml Vial 1 Ml IM QMONTH Loratadine 10 Mg Tablet 1 Tab PO DAILY ROS: Review of Systems Review of System cannot obtain from patient Physical Exam: Vital Signs: Vital Signs Date Time Temp Pulse Resp B/P (MAP) Pulse Ox O2 Delivery O2 Flow Rate FiO2 07/06/21 11:00 97.8 67 18 107/48 (67) 92 Room Air 97.8 Physcial Exam: GEN: No apparent distress. Alert and oriented HEENT: Normal cephalic, atraumatic, external auditory canals are patent EYES: Extraocular muscles are intact, pupil are equally round and reactive to light and accommodation MUSCULOSKELETAL: Well developed , well nourished, good range of motion ENDOCRINE: No thyromegaly was palpated LYMPHATICS: No cervical chain or axillary nodes were noted HEMATOPOIETIC: No bruising NECK: Supple, no JVD, no thyromegaly was noted LUNGS: Clear to auscultation in all lung hernández without rhonchi or wheezing HEART: RRR, S!, S2 present. Peripheral pulses intact, no obvious murmurs noted ABDOMEN: Soft, nontender. Positive bowel sounds, no organomegaly, normal bowel sounds EXTREMITIES: Without clubbing, cyanosis, or edema. Pedal pulses intact. Neg ative Homans sign NEUROLOGIC: Normal speech and tone. A&O x 3, moves all extremities, no obvious focal deficits PSYCHIATRIC: Normal affect, normal mood. Stable SKIN: No ulcerations or rashes, good skin turgor, no jaundice VASCULAR: Good capillary refill, neurovascular bundle appears to be intact Labs: Labs: Laboratory Tests Test 07/05/21 21:05 07/05/21 21:12 07/06/21 00:03 07/06/21 04:20 White Blood Count 5.5 x10^3/uL (4.0-11.0) Red Blood Count 4.27 x10^6/uL (3.50-5.40) Hemoglobin 13.3 g/dL (12.0-15.5) Hematocrit 41.0 % (36.0-47.0) Mean Corpuscular Volume 96 fL (79-100) Mean Corpuscular Hemoglobin 31 pg (25-35) Mean Corpuscular Hemoglobin Concent 33 g/dL (31-37) Red Cell Distribution Width 13.0 % (11.5-14.5) Platelet Count 186 x10^3/uL (140-400) Neutrophils (%) (Auto) 61 % (31-73) Lymphocytes (%) (Auto) 25 % (24-48) Monocytes (%) (Auto) 10 % (0-9) Eosinophils (%) (Auto) 4 % (0-3) Basophils (%) (Auto) 0 % (0-3) Neutrophils # (Auto) 3.4 x10^3/uL (1.8-7.7) Lymphocytes # (Auto) 1.4 x10^3/uL (1.0-4.8) Monocytes # (Auto) 0.5 x10^3/uL (0.0-1.1) Eosinophils # (Auto) 0.2 x10^3/uL (0.0-0.7) Basophils # (Auto) 0.0 x10^3/uL (0.0-0.2) D-Dimer (Emperatriz) 0.98 ug/mlFEU (0.00-0.50) Sodium Level 139 mmol/L (136-145) Potassium Level 3.1 mmol/L (3.5-5.1) Chloride Level 103 mmol/L (98-107) Carbon Dioxide Level 31 mmol/L (21-32) Anion Gap 5 (6-14) Blood Urea Nitrogen 7 mg/dL (7-20) Creatinine 0.7 mg/dL (0.6-1.0) Estimated GFR (Cockcroft-Gault) 86.6 BUN/Creatinine Ratio 10 (6-20) Glucose Level 85 mg/dL (70-99) Calcium Level 8.3 mg/dL (8.5-10.1) Total Bilirubin 0.5 mg/dL (0.2-1.0) Aspartate Amino Transf (AST/SGOT) 42 U/L (15-37) Alanine Aminotransferase (ALT/SGPT) 35 U/L (14-59) Alkaline Phosphatase 146 U/L (46-116) Troponin I High Sensitivity 5 ng/L (4-50) 7 ng/L (4-50) 8 ng/L (4-50) VH-Nqj-X-Type Natriuretic Peptide 146 pg/mL (0-124) Total Protein 8.0 g/dL (6.4-8.2) Albumin 3.5 g/dL (3.4-5.0) Albumin/Globulin Ratio 0.8 (1.0-1.7) Lipase 107 U/L (73-393) Urine Collection Type Void Urine Color Yellow Urine Clarity Clear Urine pH 5.5 (<5.0-8.0) Urine Specific [place] <=1.005 (1.000-1.030) Urine Protein Negative mg/dL (NEG-TRACE) Urine Glucose (UA) Negative mg/dL (NEG) Urine Ketones (Stick) Negative mg/dL (NEG) Urine Blood Trace (NEG) Urine Nitrite Negative (NEG) Urine Bilirubin Negative (NEG) Urine Urobilinogen Dipstick 0.2 mg/dL (0.2 mg/dL) Urine Leukocyte Esterase Negative (NEG) Urine RBC 0 /HPF (0-2) Urine WBC Rare /HPF (0-4) Urine Squamous Epithelial Cells Few /LPF Urine Bacteria 0 /HPF (0-FEW) Triglycerides Level 94 mg/dL (0-150) Cholesterol Level 173 mg/dL (0-200) LDL Cholesterol, Calculated 95 mg/dL (0-100) VLDL Cholesterol, Calculated 19 mg/dL (0-40) Non-HDL Cholesterol Calculated 114 mg/dL (0-129) HDL Cholesterol 59 mg/dL (40-60) Cholesterol/HDL Ratio 2.9 Thyroid Stimulating Hormone (TSH) 1.510 uIU/mL (0.358-3.74) Laboratory Tests Test 07/05/21 21:05 07/05/21 21:12 07/06/21 00:03 07/06/21 04:20 White Blood Count 5.5 x10^3/uL (4.0-11.0) Red Blood Count 4.27 x10^6/uL (3.50-5.40) Hemoglobin 13.3 g/dL (12.0-15.5) Hematocrit 41.0 % (36.0-47.0) Mean Corpuscular Volume 96 fL (79-100) Mean Corpuscular Hemoglobin 31 pg (25-35) Mean Corpuscular Hemoglobin Concent 33 g/dL (31-37) Red Cell Distribution Width 13.0 % (11.5-14.5) Platelet Count 186 x10^3/uL (140-400) Neutrophils (%) (Auto) 61 % (31-73) Lymphocytes (%) (Auto) 25 % (24-48) Monocytes (%) (Auto) 10 % (0-9) Eosinophils (%) (Auto) 4 % (0-3) Basophils (%) (Auto) 0 % (0-3) Neutrophils # (Auto) 3.4 x10^3/uL (1.8-7.7) Lymphocytes # (Auto) 1.4 x10^3/uL (1.0-4.8) Monocytes # (Auto) 0.5 x10^3/uL (0.0-1.1) Eosinophils # (Auto) 0.2 x10^3/uL (0.0-0.7) Basophils # (Auto) 0.0 x10^3/uL (0.0-0.2) D-Dimer (Emperatriz) 0.98 ug/mlFEU (0.00-0.50) Sodium Level 139 mmol/L (136-145) Potassium Level 3.1 mmol/L (3.5-5.1) Chloride Level 103 mmol/L (98-107) Carbon Dioxide Level 31 mmol/L (21-32) Anion Gap 5 (6-14) Blood Urea Nitrogen 7 mg/dL (7-20) Creatinine 0.7 mg/dL (0.6-1.0) Estimated GFR (Cockcroft-Gault) 86.6 BUN/Creatinine Ratio 10 (6-20) Glucose Level 85 mg/dL (70-99) Calcium Level 8.3 mg/dL (8.5-10.1) Total Bilirubin 0.5 mg/dL (0.2-1.0) Aspartate Amino Transf (AST/SGOT) 42 U/L (15-37) Alanine Aminotransferase (ALT/SGPT) 35 U/L (14-59) Alkaline Phosphatase 146 U/L (46-116) Troponin I High Sensitivity 5 ng/L (4-50) 7 ng/L (4-50) 8 ng/L (4-50) SL-Wje-[id number]-Type Natriuretic Peptide 146 pg/mL (0-124) Total Protein 8.0 g/dL (6.4-8.2) Albumin 3.5 g/dL (3.4-5.0) Albumin/Globulin Ratio 0.8 (1.0-1.7) Lipase 107 U/L (73-393) Urine Collection Type Void Urine Color Yellow Urine Clarity Clear Urine pH 5.5 (<5.0-8.0) Urine Specific [place] <=1.005 (1.000-1.030) Urine Protein Negative mg/dL (NEG-TRACE) Urine Glucose (UA) Negative mg/dL (NEG) Urine Ketones (Stick) Negative mg/dL (NEG) Urine Blood Trace (NEG) Urine Nitrite Negative (NEG) Urine Bilirubin Negative (NEG) Urine Urobilinogen Dipstick 0.2 mg/dL (0.2 mg/dL) Urine Leukocyte Esterase Negative (NEG) Urine RBC 0 /HPF (0-2) Urine WBC Rare /HPF (0-4) Urine Squamous Epithelial Cells Few /LPF Urine Bacteria 0 /HPF (0-FEW) Triglycerides Level 94 mg/dL (0-150) Cholesterol Level 173 mg/dL (0-200) LDL Cholesterol, Calculated 95 mg/dL (0-100) VLDL Cholesterol, Calculated 19 mg/dL (0-40) Non-HDL Cholesterol Calculated 114 mg/dL (0-129) HDL Cholesterol 59 mg/dL (40-60) Cholesterol/HDL Ratio 2.9 Thyroid Stimulating Hormone (TSH) 1.510 uIU/mL (0.358-3.74) Assessment/Plan Assessment/Plan Atypical chest pain suspect 2/2 GERD vs muscular, hyperthyroid -Patient presented with chest pain to emergency department. 1 day history of this. Epigastric/central location. -Cardiac work-up in emergency room largely negative. -Cardiology consulted -We will give PPI in case this is GERD. As needed GI cocktail -Otherwise resume home meds as indicated including hypothyroid meds -DVT prophylaxis -Cardiac diet Justifications for Admission Other Justification ALISON VERDUZCO MD Jul 06, 2021 12:40
[2021-07-06] MEDS ORDERED: PANTOPRAZOLE 40 MG TABLET.DR. PO SCH (12:45)
[2021-07-06] MEDS ORDERED: POTASSIUM CHLORIDE 20 MEQ TABLET.ER. PO ONE (12:45)
[2021-07-06] MEDS ORDERED: PANT40TA77 PO (13:27)
--- NOTE | 2021-07-06 14:19 | NUR ---
Discharge Note: Patient was discharged home with self care. Patients daughter at bedside and received discharge education. They received discharge summary/instructions, follow-ups and educational material. Patients new prescriptions were sent to patients preferred pharmacy. Patient and daughter did not have any further questions. Patient was taken down to the main entrance via wheelchair with all personal belongings accompanied by [place] Hudson and daughter.
[2021-07-06] MEDS ORDERED: PATCH REMOVAL. MC SCH (21:00)
--- NOTE | 2021-07-09 16:06 | PDOC3 ---
[facility]-Discharge Summary Date of Admission: Date of Admission: Jul 06, 2021 Date of Discharge: Date of Discharge: Jul 06, 2021 Admission Diagnosis: Admitting Diagnosis: chest pain Hospital Course: Hospital Course: Patient is a 56 year old female who presents with mid chest pain that goes down into the stomach area since this morning. Patient states that it does hurt sometimes when she takes a deep breath and in. When asked what the pain feels like the patient is unable to describe it and states " its just pain". She also states that she had some chills yesterday. She states that she has had this kind of pain before. She has not taken any medication to help with the pain. Denies abdominal pain, nausea, vomiting, diarrhea, shortness of breath, numbness or tingling, focal weakness, headache, dizziness, vision change. Patient's daughter is interpreting for the patient. Patient has a history of hypothyroid, hypertension, GERD, gastric ulcer, CHF. Patient evaluated by cardiology able to discharge home today. She has improved from a symptomatic standpoint. Discussed with daughter at bedside as well. Great 30 minutes spent on discharge Disposition: Disposition/Orders: D/C to Home Activity: Activity: Resume previous activity Diet: Diet: Cardiac Medications: Home Meds Active Scripts Pantoprazole Sodium (PANTOPRAZOLE SODIUM ) 40 Mg Tablet., 40 MG PO DAILYAC for gerd for 30 Days, #30 TAB.SR Prov:ALISON VEDRUZCO MD 07/06/21 Triamcinolone Acetonide (TRIAMCINOLONE ACETONIDE 0.1% CREAM) 15 Gm Cream..g., 1 JANINE TP TID, #1 TUBE Prov:RYLAN BAI APRN 05/14/19 Reported Medications Methimazole (METHIMAZOLE) 5 Mg Tablet, 1 TAB PO DAILY for 07/06/21 Diclofenac Sodium (Diclofenac Sodium) 100 Gm Gel..gram., 4 GM TP QID for neck pain 07/06/21 Furosemide (FUROSEMIDE) 40 Mg Tablet, 1 TAB PO QAM for 07/06/21 Cyanocobalamin (Vitamin B-12) (CYANOCOBALAMIN INJECTION) 1,000 Mcg/1 Ml Vial, 1 ML IM QMONTH for 07/06/21 Loratadine (LORATADINE) 10 Mg Tablet, 1 TAB PO DAILY for 07/06/21 Scheduled Cyanocobalamin (Vitamin B-12) (Cyanocobalamin Injection), 1 ML IM QMONTH, ( Reported) Diclofenac Sodium (Diclofenac Sodium), 4 GM TP QID, (Reported) Furosemide (Furosemide), 1 TAB PO QAM, (Reported) Loratadine (Loratadine), 1 TAB PO DAILY, (Reported) Methimazole (Methimazole), 1 TAB PO DAILY, (Reported) Pantoprazole Sodium (Pantoprazole Sodium ), 40 MG PO DAILYAC Triamcinolone Acetonide (Triamcinolone Acetonide 0.1% Cream), 1 JANINE TP TID Justicifation of Admission Dx: Justifications for Admission: Justification of Admission Dx: N/A ALISON VERDUZCO MD Jul 09, 2021 16:06
== END 2021-07-06 14:22 | disposition home or self-care (01) ==
LOC: ER 20:45 → INTOOBSV 07-06 00:34 → 2 NORTH 07-06 00:34
PROVIDERS: ADMIT Internal Medicine; ATTEND Internal Medicine
DX: R07.89 Other chest pain (principal); I11.0 Hypertensive heart disease with heart failure; I50.9 Heart failure, unspecified; T50.1X5A Adverse effect of loop [high-ceiling] diuretics, initial encounter; K21.9 Gastro-esophageal reflux disease without esophagitis; I83.90 Asymptomatic varicose veins of unspecified lower extremity; E03.9 Hypothyroidism, unspecified; E05.90 Thyrotoxicosis, unspecified without thyrotoxic crisis or storm; E87.6 Hypokalemia; J98.11 Atelectasis; Z87.11 Personal history of peptic ulcer disease; Z87.19 Personal history of other diseases of the digestive system; Z79.82 Long term (current) use of aspirin; Z90.49 Acquired absence of other specified parts of digestive tract; Z79.899 Other long term (current) drug therapy; Z98.890 Other specified postprocedural states
CPT/HCPCS: 36415; 71045; 71275; 80053; 80061; 81001; 83690; 83880; 84443; 84484; 85025; 85379; 93005; 96361; 96374; 96375; 99285; G0378; J2270; J2405; J3490; J7040; Q9967; G0379